=== PATIENT | male | born 1945 | race Caucasian/White ===

== ENCOUNTER 2017-07-22 12:43 | Emergency (ER) | payer MEDICARE, BC ==
[2017-07-22] MEDS ORDERED: FAMOTIDINE INJ/PF 20 MG/2 ML SDV IV ONE (13:07)
[2017-07-22] MEDS ORDERED: METHYLPREDNISOLONE INJ 125 MG/2 ML SDV IV ONE (13:07)
--- NOTE | 2017-07-22 13:08 | ER Document Report ---
HPI - HPI Patient complains to provider of: Insect sting Onset: Just prior to arrival Onset/Duration: Sudden Quality of pain: Burning Pain Level: 5 Context: Patient states he was mowing his yard and a caterpillar fell onto his left cheek and neck area. Patient states that he remove the insect and developed a burning sensation to his left facial area. Patient states that his then wash the area with soap. Patient complains of continued burning sensation and swelling. Patient denies any difficulty breathing, throat swelling, nausea or vomiting. Associated Symptoms: Other - Left side facial pain Exacerbated by: Denies Relieved by: Denies Similar symptoms previously: No Recently seen / treated by doctor: No - ROS ROS below otherwise negative: Yes Systems Reviewed and Negative: Yes All other systems reviewed and negative - CONSTITUTIONAL Constitutional: DENIES: Fever, Chills - NEURO Neurology: DENIES: Headache - CARDIOVASCULAR Cardiovascular: DENIES: Chest pain - RESPIRATORY Respiratory: DENIES: Trouble Breathing, Coughing - GASTROINTESTINAL Gastrointestinal: DENIES: Nausea - MUSCULOSKELETAL Musculoskeletal: REPORTS: Neck Pain - Sided neck - DERM Skin Color: Erythema Skin Problems: None Past Medical History - General Information source: Patient - Social History Smoking Status: Never Smoker Frequency of alcohol use: None Drug Abuse: None Lives with: Spouse/Significant other Family History: Reviewed & Not Pertinent - Past Medical History Cardiac Medical History: Reports: Hx Hypertension - meds x 2 years Denies: Hx Atrial Fibrillation, Hx Congestive Heart Failure, Hx Coronary Artery Disease, Hx Heart Attack, Hx Hypercholesterolemia, Hx Peripheral Vascular Disease, Hx Pulmonary Embolism, Hx Heart Murmur Pulmonary Medical History: Reports: Hx Sleep Apnea - CPAP ordered, ill fitting, does NOT use Denies: Hx Asthma, Hx Bronchitis, Hx COPD, Hx Pneumonia, Hx Respiratory Failure, Hx Tuberculosis Renal/ Medical History: Reports: Hx Benign Prostatic Hyperplasia - Bx 2012 after elevated PSA test, path results negative. Denies: Hx End Stage Renal Disease, Hx Kidney Stones, Hx Peritoneal Dialysis Malignancy Medical History: Denies Hx Lung Cancer GI Medical History: Reports: Hx Gastroesophageal Reflux Disease - prior to Yoni fundoplication 1999, Hx Hiatal Hernia - prior to Yoni fundoplication 1999. Denies: Hx Crohn's Disease, Hx Irritable Bowel, Hx Liver Failure, Hx Ulcer Musculoskeltal Medical History: Reports Hx Arthritis, Denies Hx Fibromyalgia, Denies Hx Muscular Dystrophy Traumatic Medical History: Reports: Hx Fractures - RT arm, as child, closed reduction/casting Past Surgical History: Reports: Hx Herniorrhaphy - RIGHT inguinal with mesh, Hx Orthopedic Surgery. Denies: Hx Appendectomy, Hx Bowel Surgery, Hx Cholecystectomy, Hx Colostomy, Hx Coronary Artery Bypass Graft, Hx Gastric Bypass Surgery, Hx Tonsillectomy - Immunizations Hx Pneumococcal Vaccination: 11/03/11 Vertical Provider Document - CONSTITUTIONAL Agree With Documented VS: Yes Exam Limitations: No Limitations General Appearance: WD/WN, No Apparent Distress - INFECTION CONTROL TRAVEL OUTSIDE OF THE [place] IN LAST 30 DAYS: No - HEENT HEENT: Atraumatic, Normocephalic - NECK Neck: Supple. negative: Lymphadenopathy-Left, Lymphadenopathy-Right - RESPIRATORY Respiratory: Breath Sounds Normal, No Respiratory Distress - CARDIOVASCULAR Cardiovascular: Regular Rate, Regular Rhythm, No Murmur - MUSCULOSKELETAL/EXTREMETIES Musculoskeletal/Extremeties: MAEW - NEURO Level of Consciousness: Awake, Alert, Appropriate Motor/Sensory: No Motor Deficit - DERM Integumentary: Warm, Dry Notes: Erythema to left lateral side of face and neck Course - Re-evaluation Re-evalutation: 07/22/17 15:07 Patient complains of continued stinging sensation to the left side of face. No increased swelling noted, no potential airway compromise. Respirations unlabored. Discharge - Discharge Clinical Impression: Hx of essential hypertension Toxic effect of venom of caterpillars Qualifiers: Encounter type: initial encounter Injury intent: undetermined intent Qualified Code(s): T63.434A - Toxic effect of venom of caterpillars, undetermined, initial encounter Condition: Stable Disposition: HOME, SELF-CARE Instructions: Use of Diphenhydramine, Oral Narcotic Medication ([facility]), Steroid Medication Additional Instructions: Return immediately for any new or worsening symptoms Followup with your primary care provider, call tomorrow to make a followup appointment Prescriptions: Oxycodone HCl/Acetaminophen [Percocet 5-325 mg Tablet] 1 tab PO ASDIR PRN #12 tablet PRN Reason: Prednisone [Deltasone 20 mg Tablet] 2 tab PO DAILY 4 Days tablet Forms: Elevated Blood Pressure Referrals: ADOLFO ROBLERO MD [Primary Care Provider] - Follow up tomorrow
[2017-07-22] MEDS ORDERED: MORPHINE SULFATE 10 MG/ML INJ IV ONE ×2 (13:51→15:05)
--- NOTE | 2017-07-22 14:26 | RADIOLOGY REPORT (SQ) ---
EXAM DESCRIPTION: CHEST XRAY PA ONLY COMPLETED DATE/TIME: 07/22/2017 2:19 pm REASON FOR STUDY: INSECT BITE COMPARISON: 05/28/2013. EXAM PARAMETERS: NUMBER OF VIEWS: One view. TECHNIQUE: Single frontal radiographic view of the chest acquired. RADIATION DOSE: NA LIMITATIONS: None. FINDINGS: LUNGS AND PLEURA: No opacities, masses or pneumothorax. No pleural effusion. MEDIASTINUM AND HILAR STRUCTURES: No masses. Contour normal. HEART AND VASCULAR STRUCTURES: Heart normal in size. Normal vasculature. BONES: No acute findings. HARDWARE: None in the chest. OTHER: No other significant finding. IMPRESSION: NO ACUTE RADIOGRAPHIC FINDING IN THE CHEST. TECHNICAL DOCUMENTATION: JOB ID: [id number]
[2017-07-22 16:00] VITALS: BP 142/92
== END 2017-07-22 15:05 | disposition home or self-care (01) ==
LOC: ER 12:43
DX: T63.431A Toxic effect of venom of caterpillars, accidental (unintentional), initial encounter (principal); Y92.007 Garden or yard of unspecified non-institutional (private) residence as the place of occurrence of the external cause; I10 Essential (primary) hypertension
CPT/HCPCS: 96376; 99282; 96374; 96375; J2930; J2270; S0028

== ENCOUNTER → 2017-11-17 | Outpatient (CLI) | payer MEDICARE, BC ==
--- NOTE | 2017-11-17 12:45 | RADIOLOGY REPORT (SQ) ---
EXAM DESCRIPTION: HIP RIGHT AP/LATERAL COMPLETED DATE/TIME: 11/17/2017 12:28 pm REASON FOR STUDY: PAIN IN RIGHT HIP M25.551 PAIN IN RIGHT HIP M46.1 SACROILIITIS, NOT ELSEWHERE CL ASSIFIED COMPARISON: None. NUMBER OF VIEWS: Two views. TECHNIQUE: AP pelvis and additional frog-leg view of the right hip. LIMITATIONS: None. FINDINGS: MINERALIZATION: Normal. RIGHT HIP: Moderate osteoarthritis in the setting of CAM type morphologic appearance. No fracture or dislocation. No worrisome bone lesions. LEFT HIP: Moderate osteoarthritis in the setting of CAM type morphologic appearance. No fracture or dislocation. No worrisome bone lesions. PUBIS AND ISCHIUM: No fracture. PELVIS: No fracture. SACRUM: See separate report. LOWER LUMBAR SPINE: See separate report. SOFT TISSUES: No findings. OTHER: No other significant finding. IMPRESSION: MODERATE OSTEOARTHRITIS OF THE HIPS WITHOUT ACUTE OSSEOUS ABNORMALITY TECHNICAL DOCUMENTATION: JOB ID: [id number] [employer]- All Rights Reserved
--- NOTE | 2017-11-17 12:46 | RADIOLOGY REPORT (SQ) ---
EXAM DESCRIPTION: SACROILIAC JOINTS COMPLETED DATE/TIME: 11/17/2017 12:28 pm REASON FOR STUDY: SACROILIITIS, NOT ELSEWHERE CLASSIFIED M25.551 PAIN IN RIGHT HIP M46.1 SACROILII TIS, NOT ELSEWHERE CLASSIFIED COMPARISON: None. NUMBER OF VIEWS: Three views. TECHNIQUE: AP and oblique views of the sacroiliac joints. LIMITATIONS: None. FINDINGS: MINERALIZATION: Normal. BONES: No acute fracture or dislocation. No worrisome bone lesions. JOINTS: The sacroiliac joints are patent. No unusual widening, sclerosis, or fusion. SOFT TISSUES: No soft tissue swelling. No radio-opaque foreign body. OTHER: No other significant finding. IMPRESSION: Unremarkable radiographs of the sacroiliac joints. TECHNICAL DOCUMENTATION: JOB ID: [id number]- All Rights Reserved
== END ==
LOC: OD 11:42
PROVIDERS: ATTEND Internal Medicine
DX: M16.0 Bilateral primary osteoarthritis of hip (principal); M25.551 Pain in right hip; M46.1 Sacroiliitis, not elsewhere classified
CPT/HCPCS: 72200

== ENCOUNTER → 2017-11-19 | Outpatient (CLI) | payer MEDICARE, BC ==
--- NOTE | 2017-11-19 14:20 | RADIOLOGY REPORT (SQ) ---
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 Images stored on PACS. LIMITATIONS: None. FINDINGS: ANATOMY: No anomalies. Normal vascular flow voids. Pituitary fossa normal. CSF SPACES: Normal in size and contour. No hemorrhage. CEREBRUM: A few high-signal intensity lesions scattered throughout the white matter on FLAIR imaging with distribution suggesting chronic micro-vascular ischemic change. Sulci and gyri normal in size a nd contour. No evidence of hemorrhage, mass or extraaxial fluid collection. POSTERIOR FOSSA: No signal alteration. No hemorrhage. No edema, masses or mass effect. Internal umang tory canals, cerebello-pontine angles, mastoids normal. DIFFUSION: Negative for acute or sub-acute infarction. ORBITS: No masses. Globes normal. PARANASAL SINUSES: Mild chronic ethmoid and frontal sinus disease. OTHER: No other significant finding. IMPRESSION: MINIMAL MICROVASCULAR ISCHEMIC CHANGE. OTHERWISE NORMAL STUDY. EVIDENCE OF ACUTE STROKE: NO. TECHNICAL DOCUMENTATION: JOB ID: [id number] [employer]- All Rights Reserved
== END ==
LOC: RAD 08:27
PROVIDERS: ATTEND Internal Medicine
DX: R41.1 Anterograde amnesia (principal)
CPT/HCPCS: 70551

== ENCOUNTER → 2017-12-19 | Outpatient (CLI) | payer MEDICARE, BC ==
--- NOTE | 2017-12-20 08:29 | RADIOLOGY REPORT (SQ) ---
EXAM DESCRIPTION: CT ABD/PELVIS WITH IV ORAL COMPLETED DATE/TIME: 12/19/2017 5:49 pm REASON FOR STUDY: LLQ PAIN (R10.32) R10.32 LEFT LOWER QUADRANT PAIN COMPARISON: 05/02/2015. TECHNIQUE: CT scan of the abdomen and pelvis performed using helical scanning technique with dynamic intravenous contrast injection. Oral contrast was given. . Images reviewed with lung, soft tissue, and bone windows. Reconstructed coronal and sagittal MPR images reviewed. Delayed images for evaluat ion of the urinary system also acquired. All images stored on PACS. All CT scanners at this facility use dose modulation, iterative reconstruction, and/or weight based d osing when appropriate to reduce radiation dose to as low as reasonably achievable (ALARA). [facility]: Dose Right [facility]: CareDose [facility]: Dose Right [facility]: Teradose 4D [facility]: Cymbet CONTRAST TYPE AND DOSE: contrast/concentration: Isovue 370.00 mg/ml; Total Contrast Delivered: 100.0 ml; Total Saline Delivered: 40.0 ml RENAL FUNCTION: Creatinine: 0.9 RADIATION DOSE: CT Rad equipment meets quality standard of care and radiation dose reduction techniq ues were employed. CTDIvol: 13.4 - 17.7 mGy. DLP: 1818 mGy-cm.. LIMITATIONS: None. FINDINGS: LOWER CHEST: Dependent atelectasis in lung bases. . LIVER: No abnormality seen. SPLEEN: No abnormality seen. PANCREAS: No abnormality seen. GALLBLADDER: No abnormality seen. ADRENAL GLANDS: No abnormality seen. RIGHT KIDNEY AND URETER: There is a cortical cyst upper pole of right kidney. Small parapelvic cysts of the right kidney. LEFT KIDNEY AND URETER: Cortical cyst upper pole left kidney. Parapelvic cyst left kidney. AORTA AND VESSELS: Atherosclerotic change of the origin of the celiac artery. Patency celiac superio r mesenteric and inferior mesenteric arteries. RETROPERITONEUM: No retroperitoneal adenopathy. BOWEL AND PERITONEAL CAVITY: Since prior study there is been development of mucosal thickening within a short segment of the rectosigmoid colon with adjacent inflammatory change in pericolonic fat ( gabino ge number [id number]/100 sequence 5). Findings are consistent with acute diverticulitis. APPENDIX: Normal. PELVIS: Urinary bladder: No abnormality seen. Prostate and seminal vesicles: Mild prostatomegaly. ABDOMINAL WALL: No masses. No hernias. BONES: There is multilevel lumbar spondylosis and degenerative disc disease. OTHER: Postsurgical changes of abdominal wall hernia repair IMPRESSION: Findings consistent with acute diverticulitis rectosigmoid colon. TECHNICAL DOCUMENTATION: JOB ID: [id number]-69 Quality ID # [id number]: Final reports with documentation of one or more dose reduction techniques (e.g., Au tomated exposure control, adjustment of the mA and/or kV according to patient size, use of iterative reconstruction technique) 2010 [employer]- All Rights Reserved
== END ==
LOC: RAD 14:38
PROVIDERS: ATTEND Internal Medicine
DX: R10.32 Left lower quadrant pain (principal)
CPT/HCPCS: 74177; 82565

== ENCOUNTER → 2018-01-22 | Outpatient (CLI) | payer MEDICARE, BC ==
--- NOTE | 2018-01-22 17:11 | RADIOLOGY REPORT (SQ) ---
EXAM DESCRIPTION: CHEST PA/LATERAL COMPLETED DATE/TIME: 01/22/2018 4:58 pm REASON FOR STUDY: COUGH,SOB COMPARISON: Chest films 05/28/2013, 07/12/2017 EXAM PARAMETERS: NUMBER OF VIEWS: two views TECHNIQUE: Digital Frontal and Lateral radiographic views of the chest acquired. RADIATION DOSE: NA LIMITATIONS: none FINDINGS: LUNGS AND PLEURA: No opacities, masses or pneumothorax. No pleural effusion. MEDIASTINUM AND HILAR STRUCTURES: No masses or contour abnormalities. HEART AND VASCULAR STRUCTURES: Heart normal size. No evidence for failure. BONES: No acute findings. HARDWARE: None in the chest. OTHER: No other significant finding. IMPRESSION: NO SIGNIFICANT RADIOGRAPHIC FINDING IN THE CHEST. TECHNICAL DOCUMENTATION: JOB ID: [id number] [employer]- All Rights Reserved Reading location - IP/workstation name: [email or web address]
== END ==
LOC: OD 16:47
PROVIDERS: ATTEND Physician Assistant Medical
DX: R05 Cough (principal); R06.02 Shortness of breath
CPT/HCPCS: 71046

== ENCOUNTER 2019-05-18 12:01 | Inpatient (IN) | payer MEDICARE, BC ==
[2019-05-18 12:57] LABS: PROTHROMBIN TIME 14.2 SEC (11.4-15.4)
[2019-05-18 13:01] LABS: ABSOLUTE BASOPHILS # (AUTO) 0.1 10^3/uL (0.0-0.2); ABSOLUTE EOSINOPHILS # (AUTO) 0.5 10^3/uL (0.0-0.6); ABSOLUTE LYMPHOCYTES (AUTO) 1.8 10^3/uL (0.5-4.7); ABSOLUTE MONOCYTES (AUTO) 0.5 10^3/uL (0.1-1.4); ABSOLUTE NEUT (AUTO) 4.7 10^3/uL (1.7-8.2); ALANINE AMINOTRANSFERASE 26 U/L (21-72); ALKALINE PHOSPHATASE 95 U/L (38-126); ANION GAP 9 (5-19); ASPARTATE AMINO TRANSFERASE 24 U/L (17-59); BASOPHILS % (AUTO) 0.7 % (0-2); BILIRUBIN,DIRECT 0.3 mg/dL (0.0-0.4); BILIRUBIN,TOTAL 0.7 mg/dL (0.2-1.3); BLOOD UREA NITROGEN 13 mg/dL (7-20); CALCIUM 9.2 mg/dL (8.4-10.2); CARBON DIOXIDE 24 mmol/L (22-30); CHLORIDE 108 mmol/L (98-107); EOSINOPHILS % (AUTO) 7.2 % (0-6); GLUCOSE 85 mg/dL (75-110); HEMATOCRIT 39.8 % (37.9-51.0); LYMPHOCYTES % (AUTO) 23.9 % (13-45); MEAN CORPUSCULAR HEMOGLOBIN 28.7 pg (27.0-33.4); MEAN CORPUSCULAR HGB CONC 32.8 g/dL (32.0-36.0); MEAN CORPUSCULAR VOLUME 88 fl (80-97); MONOCYTES % (AUTO) 6.1 % (3-13); PLATELET COUNT 184 10^3/uL (150-450); RED BLOOD COUNT 4.55 10^6/uL (4.35-5.55); RED CELL DISTRIBUTION WIDTH 13.7 % (11.5-14.0); SEGMENTED NEUTROPHILS % (AUTO) 62.1 % (42-78); SODIUM 140.9 mmol/L (137-145); TOTAL CELLS COUNTED % (AUTO) 100 %; WHITE BLOOD COUNT 7.5 10^3/uL (4.0-10.5)
--- NOTE | 2019-05-18 13:19 | ER Document Report ---
ED Respiratory Problem - General Chief Complaint: Shortness Of Breath Stated Complaint: SHORTNESS OF BREATH Time Seen by Provider: 05/18/19 13:09 Primary Care Provider: ADOLFO ROBLERO MD [Primary Care Provider] - Follow up as needed Notes: Patient is a 73-year-old male who is having some shortness of breath inte rmittently over the past few weeks. He underwent a right total hip replacement in [place] on April 27. Ever since then, he says he has had intermittent shortness of breath. He had a routine six-month checkup with his primary care physician today and mention to him that he was having these episodes of shortness of breath and patient was sent for an outpatient CTA. That imaging study showed multiple areas of pulmonary emboli bilaterally. There is also some evidence of right heart strain and elevated right-sided pressure. TRAVEL OUTSIDE OF THE [place] IN LAST 30 DAYS: No - Related Data Allergies/Adverse Reactions: adhesive tape [Adhesive Tape] Allergy (Intermediate, Verified 05/18/19 12:16) Hives latex [Latex] Allergy (Intermediate, Verified 05/18/19 12:16) Hives Past Medical History - Social History Smoking Status: Former Smoker Frequency of alcohol use: None Drug Abuse: None Family History: Reviewed & Not Pertinent Patient has suicidal ideation: No Patient has homicidal ideation: No - Past Medical History Cardiac Medical History: Reports: Hx Hypertension - meds x 2 years Pulmonary Medical History: Reports: Hx Sleep Apnea - CPAP ordered, ill fitting, does NOT use Renal/ Medical History: Reports: Hx Benign Prostatic Hyperplasia - Bx 2011 after elevated PSA test, path results negative Malignancy Medical History: Denies Hx Lung Cancer GI Medical History: Reports: Hx Gastroesophageal Reflux Disease - prior to Yoni fundoplication 1999, Hx Hiatal Hernia - prior to Yoni fundoplication 1999 Musculoskeletal Medical History: Reports Hx Arthritis, Denies Hx Fibromyalgia, Denies Hx Muscular Dystrophy Traumatic Medical History: Reports: Hx Fractures - RT arm, as child, closed reduction/casting Past Surgical History: Reports: Hx Abdominal Surgery, Hx Herniorrhaphy - RIGHT inguinal with mesh, Hx Orthopedic Surgery, Hx Tonsillectomy. Denies: Hx Appendectomy, Hx Bowel Surgery, Hx Cholecystectomy, Hx Colostomy, Hx Coronary Artery Bypass Graft, Hx Gastric Bypass Surgery - Immunizations Hx Pneumococcal Vaccination: 01/01/12 Review of Systems - Review of Systems Notes: REVIEW OF SYSTEMS: CONSTITUTIONAL : Denies fever. EENT: Denies eye, ear, nose or mouth or throat pain or other symptoms. CARDIOVASCULAR: Denies chest pain. RESPIRATORY: See HPI. GASTROINTESTINAL: Denies abdominal pain or nausea, vomiting, or diarrhea. GENITOURINARY: Denies difficulty or painful urinating, urinary frequency, blood in urine. MUSCULOSKELETAL: Denies back or neck pain. Denies joint pain or swelling. Denies any pain in either leg. SKIN: Denies rash or skin lesions. Surgical incision has healed completely. NEUROLOGICAL: Denies LOC or altered mental status. Denies headache. Denies sensory loss or motor deficits. ALL OTHER SYSTEMS REVIEWED AND NEGATIVE. Physical Exam - Vital signs Vitals: Temp Pulse Resp BP Pulse Ox 98.4 F 68 16 147/81 H 99 05/18/19 12:05 05/18/19 12:05 05/18/19 12:05/18/19 12:05/18/19 12:05 Interpretation: Normal. No: Hypoxic Notes: PHYSICAL EXAMINATION: GENERAL: Well-appearing, in no acute distress. Vital signs are all normal. O2 sat on room air is 100%. HEAD: Atraumatic, normocephalic. EYES: Pupils equal round and reactive to light, extraocular movements intact. ENT: oropharynx clear without exudates. Moist mucous membranes. NECK: Normal range of motion, supple. LUNGS: Breath sounds clear and equal bilaterally. HEART: Regular rate and rhythm without murmurs. ABDOMEN: Soft, nontender. No guarding or rebound. No masses. BACK: No tenderness throughout entire back. EXTREMITIES: Normal range of motion without pain. Tender where the surgical incision is located in the right hip region. NEUROLOGICAL: Normal speech, normal gait. Normal sensory, motor, and reflex exams. Awake, alert, and oriented x3. Cranial nerves normal. PSYCH: Normal mood, normal affect. SKIN: Warm, dry, no rashes. Course - Re-evaluation Re-evalutation: 05/18/19 13:19 Contacted patient's primary care physician, Dr. Pierre, who will admit him for anticoagulation. - Vital Signs Vital signs: Temp Pulse Resp BP Pulse Ox 98.4 F 68 16 147/81 H 99 05/18/19 12:05 05/18/19 12:05/18/19 12:05 05/18/19 12:05 05/18/19 12:05 - Laboratory Result Diagrams: 05/18/19 12:00 05/18/19 12:00 Laboratory results interpreted by me: 05/18/19 05/18/19 12:00 12:00 Hgb 13.0 L Eosinophils % 7.2 H Chloride 108 H - Diagnostic Test Radiology reviewed: Image reviewed, Reports reviewed - CT scan shows multiple pulmonary emboli throughout both lungs. There is some evidence of right heart strain, as well. Discharge - Discharge Clinical Impression: Multiple pulmonary emboli Condition: Stable Disposition: ADMITTED INPATIENT Admitting Provider: [facility] Unit Admitted: IMCU Referrals: ADOLFO ROBLERO MD [Primary Care Provider] - Follow up as needed
[2019-05-18] MEDS ORDERED: HEPARIN SOD (PORCINE) 5,000 UNIT/ML 1 ML SYRINGE ONE (13:49)
[2019-05-18] MEDS ORDERED: HEPARIN SOD (PORCINE) 1,000 UNIT/ML 10 ML VIAL ONE (13:50)
[2019-05-18] MEDS: HEPARIN SODIUM,PORCINE/D5W 25,000 UNIT/250 ML RTUINJ IV PRN (14:10)
[2019-05-18] MEDS ORDERED: HEPARIN SOD (PORCINE) 1,000 UNIT/ML 10 ML VIAL IV PRN (16:40)
[2019-05-18] MEDS ORDERED: IPRATROPIUM/ALBUTEROL 0.5-2.5 MG/3 ML AMPUL NEB PRN (19:46)
[2019-05-18 20:34] LABS: ABSOLUTE BASOPHILS # (AUTO) 0.1 10^3/uL (0.0-0.2); ABSOLUTE EOSINOPHILS # (AUTO) 0.7 10^3/uL (0.0-0.6); ABSOLUTE LYMPHOCYTES (AUTO) 2.1 10^3/uL (0.5-4.7); ABSOLUTE MONOCYTES (AUTO) 0.5 10^3/uL (0.1-1.4); ABSOLUTE NEUT (AUTO) 2.7 10^3/uL (1.7-8.2); BASOPHILS % (AUTO) 1.2 % (0-2); EOSINOPHILS % (AUTO) 11.1 % (0-6); HEMATOCRIT 37.6 % (37.9-51.0); HEMOGLOBIN 12.5 g/dL (13.5-17.0); MEAN CORPUSCULAR HEMOGLOBIN 28.7 pg (27.0-33.4); MEAN CORPUSCULAR HGB CONC 33.2 g/dL (32.0-36.0); MEAN CORPUSCULAR VOLUME 87 fl (80-97); MONOCYTES % (AUTO) 7.7 % (3-13); PLATELET COUNT 183 10^3/uL (150-450); RED BLOOD COUNT 4.35 10^6/uL (4.35-5.55); RED CELL DISTRIBUTION WIDTH 13.8 % (11.5-14.0); TOTAL CELLS COUNTED % (AUTO) 100 %
[2019-05-18 20:41] LABS: INTERNATIONAL RATION (INR) 1.06; PROTHROMBIN TIME 13.8 SEC (11.4-15.4)
[2019-05-18 20:43] LABS: PARTIAL THROMBOPLASTIN TIME 112.5 SEC (23.5-35.8)
[2019-05-18] MEDS: AMLODIPINE BESYLATE 2.5 MG TABLET PO SCH (20:58)
[2019-05-18] MEDS: PANTOPRAZOLE SODIUM 40 MG TABLET.DR PO SCH (20:59)
[2019-05-18 21:06] LABS: PHOSPHORUS 4.4 mg/dL (2.5-4.5)
[2019-05-18 21:10] LABS: CREATINE KINASE MB 0.35 ng/mL (<4.55)
[2019-05-18 21:12] LABS: TROPONIN I < 0.012 ng/mL
[2019-05-18 21:23] LABS: FREE T4 (FREE THYROXINE) 1.26 ng/dL (0.78-2.19)
[2019-05-18 21:37] LABS: THYROID STIMULATING HORMONE 2.91 uIU/mL (0.47-4.68)
--- NOTE | 2019-05-18 22:09 | PDOC H&P ---
History of Present Illness Admission Date/PCP: 05/18/19 13:57 ADOLFO ROBLERO MD History of Present Illness: HIRA WELLS is a 73 year old male,He came to the office today for regular follow-up evaluation, he recently underwent a right total hip joint replacement uremic seen on April 27, 2019. He complained of episodes of shortness of breath, I was somewhat concerned especially because he just recently underwent right hip replacement and he was not on any anticoagulant. I suspected pulmonary embolism, I requested for a stat CT angiogram of the chest. It demonstrated central, lobar, segmental/subsegmental pulmonary emboli bilaterally with evidence of breath and strain and elevated right-sided pressures I was called by the radiologist about the results of the CT angiogram, he was then referred to the ER to initiate management. Past Medical History Cardiac Medical History: Reports: Hypertension - meds x 2 years Pulmonary Medical History: Reports: Sleep Apnea - CPAP ordered, ill fitting, does NOT use GI Medical History: Reports: Gastroesophageal Reflux Disease - prior to Yoni fundoplication 1999, Hiatal Hernia - prior to Yoni fundoplication 1999 Musculoskeltal Medical History: Reports: Arthritis Past Surgical History Past Surgical History: Reports: Herniorrhaphy - RIGHT inguinal with mesh, Orthopedic Surgery, Tonsillectomy Social History Smoking Status: Former Smoker Hx Recreational Drug Use: No Hx Prescription Drug Abuse: No Family History Family History: Reviewed & Not Pertinent Parental Family History Reviewed: Yes Children Family History Reviewed: Yes Sibling(s) Family History Reviewed.: Yes Medication/Allergy Home Medications: Amlodipine Besylate [Norvasc 2.5 mg Tablet] 2.5 mg PO DAILY 05/18/19 Celecoxib [Celebrex 200 mg Capsule] 200 mg PO Q12HP PRN 05/18/19 Meloxicam [Mobic 7.5 mg Tablet] 7.5 mg PO Q12HP PRN 05/18/19 Montelukast Sodium [Singulair 10 mg Tablet] 10 mg PO QHS 05/18/19 Pantoprazole Sodium [Protonix [address] Tablet] 40 mg PO QAM 05/18/19 Pravastatin Sodium 40 mg PO DAILY 05/18/19 Allergies/Adverse Reactions: adhesive tape [Adhesive Tape] Allergy (Intermediate, Verified 05/18/19 12:16) Hives latex [Latex] Allergy (Intermediate, Verified 05/18/19 12:16) Hives Review of Systems Constitutional: ABSENT: chills, fever(s), headache(s), weight gain, weight loss Eyes: ABSENT: visual disturbances Ears: ABSENT: hearing changes Cardiovascular: PRESENT: dyspnea on exertion. ABSENT: chest pain, edema, orthropnea, palpitations Respiratory: PRESENT: dyspnea. ABSENT: cough, hemoptysis Gastrointestinal: ABSENT: abdominal pain, constipation, diarrhea, hematemesis, hematochezia, nausea, vomiting Genitourinary: ABSENT: dysuria, hematuria Musculoskeletal: ABSENT: joint swelling Integumentary: ABSENT: rash, wounds Neurological: ABSENT: abnormal gait, abnormal speech, confusion, dizziness, focal weakness, syncope Psychiatric: ABSENT: anxiety, depression, homidical ideation, suicidal ideation Endocrine: ABSENT: cold intolerance, heat intolerance, menstrual abnormalities, polydipsia, polyuria Hematologic/Lymphatic: ABSENT: easy bleeding, easy bruising, lymphadenopathy Physical Exam Vital Signs: Temp Pulse Resp BP Pulse Ox 98.4 F 68 23 H 156/120 H 97 05/18/19 12:05 05/18/19 12:05 05/18/19 20:01 05/18/19 20:01 05/18/19 20:01 Intake & Output 05/17/19 05/18/19 05/19/19 06:59 06:59 06:59 Intake Total 116 Balance 116 Weight 90.718 kg General appearance: PRESENT: mild distress Head exam: PRESENT: atraumatic, normocephalic Eye exam: PRESENT: conjunctiva pink, EOMI, PERRLA Ear exam: PRESENT: normal external ear exam Mouth exam: PRESENT: moist, tongue midline Neck exam: PRESENT: full ROM Respiratory exam: PRESENT: rhonchi Cardiovascular exam: PRESENT: RRR, +S1, +S2 Vascular exam: PRESENT: normal capillary refill GI/Abdominal exam: PRESENT: normal bowel sounds, soft Rectal exam: PRESENT: deferred Neurological exam: PRESENT: alert, awake, oriented to person, oriented to place, oriented to time, oriented to situation, CN II-XII grossly intact Psychiatric exam: PRESENT: appropriate affect, normal mood Skin exam: PRESENT: dry, intact, warm Results Laboratory Results: 05/18/19 20:15 05/18/19 12:00 05/18/19 05/18/19 05/18/19 12:00 12:00 20:15 WBC 7.5 RBC 4.55 Hgb 13.0 L Hct 39.8 MCV 88 MCH 28.7 MCHC 32.8 RDW 13.7 Plt Count 184 Seg Neutrophils % 62.1 Lymphocytes % 23.9 Monocytes % 6.1 Eosinophils % 7.2 H Basophils % 0.7 Absolute Neutrophils 4.7 Absolute Lymphocytes 1.8 Absolute Monocytes 0.5 Absolute Eosinophils 0.5 Absolute Basophils 0.1 Sodium 140.9 Potassium 4.0 Chloride 108 H Carbon Dioxide 24 Anion Gap 9 BUN 13 Creatinine 0.86 Est GFR ( Amer) > 60 Est GFR (Non-Af Amer) > 60 Glucose 85 Calcium 9.2 Phosphorus 4.4 Magnesium 2.0 Total Bilirubin 0.7 AST 24 ALT 26 Alkaline Phosphatase 95 Total Protein 7.0 Albumin 4.0 TSH Free T4 05/18/19 05/18/19 20:15 20:15 WBC 6.0 RBC 4.35 Hgb 12.5 L Hct 37.6 L MCV 87 MCH 28.7 MCHC 33.2 RDW 13.8 Plt Count 183 Seg Neutrophils % 45.0 Lymphocytes % 35.0 Monocytes % 7.7 Eosinophils % 11.1 H Basophils % 1.2 Absolute Neutrophils 2.7 Absolute Lymphocytes 2.1 Absolute Monocytes 0.5 Absolute Eosinophils 0.7 H Absolute Basophils 0.1 Sodium Potassium Chloride Carbon Dioxide Anion Gap BUN Creatinine Est GFR ( Amer) Est GFR (Non-Af Amer) Glucose Calcium Phosphorus Magnesium Total Bilirubin AST ALT Alkaline Phosphatase Total Protein Albumin TSH 2.91 Free T4 1.26 05/18/19 05/18/19 20:15 20:15 Creatine Kinase 33 L CK-MB (CK-2) 0.35 Troponin I < 0.012 Assessment & Plan - Diagnosis (1) Bilateral pulmonary embolism Is this a current diagnosis for this admission?: Yes Plan: Patient to be treated with high-dose intravenous heparin, he has large clot burden.The risk factor for the PE is the recent replacement of the right hip joint
[2019-05-19 01:01] LABS: APPEARANCE,URINE CLEAR; BILIRUBIN,URINE NEGATIVE (NEGATIVE); COLOR,URINE YELLOW; GLUCOSE, URINE NEGATIVE (NEGATIVE); KETONES,URINE NEGATIVE (NEGATIVE); LEUKOCYTE ESTERASE,URINE NEGATIVE (NEGATIVE); NITRITE,URINE NEGATIVE (NEGATIVE); PROTEIN,URINE NEGATIVE (NEGATIVE); URINE SPECIFIC GRAVITY 1.015; UROBILINOGEN,URINE NEGATIVE mg/dL (<2.0)
[2019-05-19 01:03] LABS: ARTERIAL BLOOD BASE EXCESS -0.7 mmol/L; ARTERIAL BLOOD H2CO3 0.98 mmol/L (1.05-1.35); ARTERIAL BLOOD HCO3 22.4 mmol/L (20-24); ARTERIAL BLOOD O2 SATURATION 98.4 % (94-98); ARTERIAL BLOOD PCO2 32.5 mmHg (35-45); ARTERIAL BLOOD PH 7.46 (7.35-7.45); ARTERIAL BLOOD PO2 113.4 mmHg (80-100); ARTERIAL BLOOD TOTAL CO2 23.4 mmol/L (23-27)
[2019-05-19 01:04] LABS: ARTERIAL BLOOD FIO2 3L
[2019-05-19 01:05] LABS: ADD MANUAL MICROSCOPIC YES
[2019-05-19 01:06] LABS: RBC,URINE RARE /HPF; WBC,URINE RARE /HPF
[2019-05-19 01:17] LABS: URINE AMPHETAMINES SCREEN NEGATIVE; URINE BARBITURATES SCREEN NEGATIVE; URINE BENZODIAZEPINES SCREEN NEGATIVE; URINE COCAINE SCREEN NEGATIVE; URINE MARIJUANA (THC) SCREEN NEGATIVE; URINE METHADONE SCREEN NEGATIVE; URINE PHENCYCLIDINE SCREEN NEGATIVE
[2019-05-19 02:53] LABS: CREATINE KINASE MB 0.33 ng/mL (<4.55)
[2019-05-19 03:42] LABS: TROPONIN I < 0.012 ng/mL
[2019-05-19] MEDS: HEPARIN SODIUM,PORCINE/D5W 25,000 UNIT/250 ML RTUINJ IV PRN (06:16)
[2019-05-19] MEDS: PANTOPRAZOLE SODIUM 40 MG TABLET.DR PO SCH (08:23)
[2019-05-19] MEDS ORDERED: NITROGLYCERIN 0.4 MG/TAB 25 TAB/BOTTLE ONE (09:17)
[2019-05-19] MEDS ORDERED: ASPIRIN 325 MG TABLET, ENT COATED PO ONE (09:21)
[2019-05-19 09:23] LABS: ABSOLUTE BASOPHILS # (AUTO) 0.1 10^3/uL (0.0-0.2); ABSOLUTE EOSINOPHILS # (AUTO) 0.6 10^3/uL (0.0-0.6); ABSOLUTE LYMPHOCYTES (AUTO) 1.6 10^3/uL (0.5-4.7); ABSOLUTE MONOCYTES (AUTO) 0.3 10^3/uL (0.1-1.4); ABSOLUTE NEUT (AUTO) 2.9 10^3/uL (1.7-8.2); BASOPHILS % (AUTO) 1.1 % (0-2); EOSINOPHILS % (AUTO) 10.7 % (0-6); HEMATOCRIT 37.7 % (37.9-51.0); HEMOGLOBIN 12.6 g/dL (13.5-17.0); LYMPHOCYTES % (AUTO) 30.2 % (13-45); MEAN CORPUSCULAR HEMOGLOBIN 28.7 pg (27.0-33.4); MEAN CORPUSCULAR HGB CONC 33.4 g/dL (32.0-36.0); MEAN CORPUSCULAR VOLUME 86 fl (80-97); MONOCYTES % (AUTO) 5.1 % (3-13); PLATELET COUNT 180 10^3/uL (150-450); RED BLOOD COUNT 4.39 10^6/uL (4.35-5.55); SEGMENTED NEUTROPHILS % (AUTO) 52.9 % (42-78); TOTAL CELLS COUNTED % (AUTO) 100 %; WHITE BLOOD COUNT 5.4 10^3/uL (4.0-10.5)
[2019-05-19] MEDS ORDERED: NITROGLYCERIN 2% OINTMENT 1 GM PACKET ONE (09:26)
[2019-05-19 09:30] LABS: INTERNATIONAL RATION (INR) 1.06; PROTHROMBIN TIME 13.8 SEC (11.4-15.4)
[2019-05-19 09:32] LABS: PARTIAL THROMBOPLASTIN TIME 67.4 SEC (23.5-35.8)
[2019-05-19] MEDS ORDERED: MORPHINE SULFATE 10 MG/ML INJ ONE (09:32)
[2019-05-19 09:41] LABS: ALANINE AMINOTRANSFERASE 27 U/L (21-72); ALBUMIN 3.7 g/dL (3.5-5.0); ALKALINE PHOSPHATASE 95 U/L (38-126); ANION GAP 7 (5-19); ASPARTATE AMINO TRANSFERASE 16 U/L (17-59); BILIRUBIN,DIRECT 0.1 mg/dL (0.0-0.4); BILIRUBIN,TOTAL 0.6 mg/dL (0.2-1.3); BLOOD UREA NITROGEN 13 mg/dL (7-20); CALCIUM 9.1 mg/dL (8.4-10.2); CARBON DIOXIDE 25 mmol/L (22-30); CHLORIDE 109 mmol/L (98-107); CHOLESTEROL 122.16 mg/dL (0-200); GLUCOSE 92 mg/dL (75-110); SODIUM 141.3 mmol/L (137-145); TOTAL PROTEIN 6.4 g/dL (6.3-8.2); TRIGLYCERIDES 156 mg/dL (<150)
--- NOTE | 2019-05-19 09:48 | RADIOLOGY REPORT (SQ) ---
EXAM DESCRIPTION: CHEST SINGLE VIEW COMPLETED DATE/TIME: 05/19/2019 9:39 am REASON FOR STUDY: chest pain COMPARISON: None. EXAM PARAMETERS: NUMBER OF VIEWS: One view. TECHNIQUE: Single frontal radiographic view of the chest acquired. RADIATION DOSE: NA LIMITATIONS: None. FINDINGS: LUNGS AND PLEURA: No opacities, masses or pneumothorax. No pleural effusion. MEDIASTINUM AND HILAR STRUCTURES: No masses. Contour normal. HEART AND VASCULAR STRUCTURES: Heart normal in size. Normal vasculature. BONES: No acute findings. HARDWARE: None in the chest. OTHER: No other significant finding. IMPRESSION: NO ACUTE RADIOGRAPHIC FINDING IN THE CHEST. TECHNICAL DOCUMENTATION: JOB ID: [id number] [employer]- All Rights Reserved Reading location - IP/workstation name: [email or web address]
[2019-05-19 09:52] LABS: DIRECT LDL 51 mg/dL (<100)
[2019-05-19 09:53] LABS: CREATINE KINASE MB 0.29 ng/mL (<4.55); TROPONIN I < 0.012 ng/mL; VLDL CHOLESTEROL 31.2 mg/dL (10-31)
[2019-05-19] MEDS ORDERED: NITROGLYCERIN 0.4 MG/TAB 25 TAB/BOTTLE SL PRN (10:32)
[2019-05-19] MEDS: AMLODIPINE BESYLATE 2.5 MG TABLET PO SCH (11:33)
--- NOTE | 2019-05-19 13:30 | EKG REPORT ---
SEVERITY:- ABNORMAL ECG - SINUS RHYTHM FIRST DEGREE AV BLOCK : Confirmed by: Jeromy Jackson MD 19-May-2019 13:30:02
--- NOTE | 2019-05-19 13:32 | EKG REPORT ---
SEVERITY:- ABNORMAL ECG - SINUS RHYTHM FIRST DEGREE AV BLOCK RIGHT VENTRICULAR HYPERTROPHY (NO, THIS IS A "RIGHT SIDED EKG", UNCERTAIN INDICATION FOR THIS) NONSPECIFIC T ABNORMALITIES, LATERAL LEADS (NO, THIS IS A RIGHT SIDED EKG) : Confirmed by: Jeromy Jackson MD 19-May-2019 13:31:58
[2019-05-19] MEDS ORDERED: OXYCODONE-ACETAMINOPHEN 5-325 MG TABLET PO PRN (14:28)
--- NOTE | 2019-05-19 15:19 | XCELERA REPORT ---
[address] [address] Transthoracic Echocardiogram Report Name: HIRA WELLS Age: 73 yrs Gender: Male : 1945 Patient Status: Inpatient Patient Location: [address] [place] [address] Study Date: 05/19/2019 10:20 AM Height: 68 in Weight: 197 lb BSA: 2.0 m2 Procedure: A two-dimensional transthoracic echocardiogram with color flow and Doppler was performed. The study was technically difficult with many images being suboptimal in quality. Reason For Study: chest pain History: Chest pain. Ordering Physician: ROZ LAMA Performed By: Mello Mora Interpretation Summary The left ventricle is normal in size. There is normal left ventricular wall thickness. LV EF is 65% Left ventricular systolic function is normal. Doppler measurements suggest impaired left ventricular relaxation, which is associated with grade I/IV or mild diastolic dysfunction The left ventricular wall motion is normal. Paradoxical septal motion is consistent with right ventricular volume overload The right ventricle is moderate to severely dilated. The right ventricular systolic function is mild to moderately reduced. There is borderline right ventricular hypertrophy. There is no evidence of mitral valve prolapse. There is no mitral valve stenosis. There is a trace amount of mitral regurgitation There is no aortic valve stenosis No aortic regurgitation is present. There is no tricuspid stenosis. There is a trace to mild amount of tricuspid regurgitation Kild hypertension.RVSP is 35 mm of Hg wirh RA mean of 10.Suspect ubder sampling of TR jjet , and hence underestimation of RVSP. There is no pulmonic valvular stenosis. There is no pericardial effusion. MMode/2D Measurements & Calculations RVDd: 4.2 cm LVIDd: 4.5 cm FS: 39.6 % Ao root diam: 3.0 cm IVSd: 0.84 cm LVIDs: 2.7 cm EDV(Teich): Ao root area: LVPWd: 0.89 cm 93.4 ml 7.1 cm2 ESV(Teich): LA dimension: 3.8 cm 27.7 ml EF(Teich): 70.3 % LVLd ap4: 8.7 cm SV(MOD-sp4): EDV(MOD-sp4): 54.0 ml 84.0 ml LVLs ap4: 7.2 cm ESV(MOD-sp4): 30.0 ml EF(MOD-sp4): 64.3 % Doppler Measurements & Calculations MV E max serg: MV P1/2t max serg: Ao V2 max: LV V1 max P.0 cm/sec 73.9 cm/sec 136.8 cm/sec 7.4 mmHg MV A max serg: MV P1/2t: 73.3 msec Ao max P.5 mmHg LV V1 max: 76.7 cm/sec MVA(P1/2t): 3.0 cm2 135.7 cm/sec MV E/A: 0.92 MV dec slope: 295.3 cm/sec2 MV dec time: 0.27 sec PA V2 max: TR max serg: MV P1/2t-pr_phl: 65.6 cm/sec 248.7 cm/sec 73.3 msec PA max PG: TR max P.7 mmHg 1.7 mmHg Left Ventricle The left ventricle is normal in size. There is normal left ventricular wall thickness. LV EF is 65%. Left ventricular systolic function is normal. Doppler measurements suggest impaired left ventricular relaxation, which is associated with grade I/IV or mild diastolic dysfunction. The left ventricular wall motion is normal. Paradoxical septal motion is consistent with right ventricular volume overload. Right Ventricle The right ventricle is moderate to severely dilated. There is borderline right ventricular hypertrophy. The right ventricular systolic function is mild to moderately reduced. Atria The right atrium is moderately dilated. The left atrial size is normal. Mitral Valve There is no evidence of mitral valve prolapse. There is no vegetation seen on the mitral valve. There is no mitral valve stenosis. There is a trace amount of mitral regurgitation. Aortic Valve There is no aortic valvular vegetation. There is no aortic valve stenosis. No aortic regurgitation is present. Tricuspid Valve There is no tricuspid stenosis. There is a trace to mild amount of tricuspid regurgitation. Kild hypertension.RVSP is 35 mm of Hg wirh RA mean of 10.Suspect ubder sampling of TR jjet , and hence underestimation of RVSP. Pulmonic Valve The pulmonic valve is not well visualized. There is no pulmonic valvular stenosis. There is no pulmonic valvular regurgitation. Great Vessels The aortic root is normal size. The inferior vena cava was not visualized. Effusions There is no pericardial effusion. : ROZ LAMA > Rosemarie Mcdowell
[2019-05-19 16:27] LABS: CREATINE KINASE MB 0.23 ng/mL (<4.55)
[2019-05-19 16:31] LABS: TROPONIN I < 0.012 ng/mL
--- NOTE | 2019-05-19 18:46 | Progress Note ---
Provider Note Provider Note: HIRA WELLS is a 73 year old male admitted for multiple PE by Dr. Cherry his PCP. At around 9:14 AM patient was complaining of chest pain radiating to the left shoulder, accompanied with diaphoresis, low BP and labored breathing W[employer] TURBINE TECHNICIAN was called which I responded to patient received 1 L of IV bolus sublingual and topical nitro aspirin and morphine. Patient's pain resolved and vitals remained stable. Stat troponin, chest x-ray WNL. Stat echo showed right heart strain. After [employer] TURB[employer] TECHNICIAN patient was upset about his care and I was contacted as per patient's request for second opinion. Bilateral pulmonary embolism: History of recent hip replacement, not anticoagulated which may have contributed to recent PE development. Patient admitted by PCP Dr. Cherry and appropriately being admitted in IMCU/Tele and placed on heparin drip. I believe based on CTA/echo findings of right heart strain and patient and the fact that patient already had chest pain and hypotension and an [employer]INE TECHNICIAN was called, he could benefit from being transferred to tertiary center where more resources readily available in case patient decompensates. Will defer final decision to PCP.
--- NOTE | 2019-05-19 19:48 | PDOC PROGRESS REPORT ---
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 Patient presently on IV heparin hemodynamically stable there is no indication at this time for systemic thrombolysis, patient will continue IV heparin for 4 to 5 days and then transition to p.o. Eliquis. Patient's family was requesting for transfer, I call [facility], patient was accepted in transfer but there is no bed available. Patient is on appropriate therapy, chest pain ,shortness of breath is part of the symptomatology of PE, I do not understand why chest pain from PE should be a reason for transfer to another hospital. Reason For Visit: SEVERE BILATERAL PULMONARY EMBOLISM Physical Exam Vital Signs: Temp Pulse Resp BP Pulse Ox 98.4 F 74 20 93/67 L 98 05/19/19 11:07 05/19/19 14:00 05/19/19 11:07 05/19/19 11:07 05/19/19 11:07 Intake & Output 05/18/19 05/19/19 05/20/19 06:59 06:59 06:59 Intake Total 243 1080 Output Total 550 1200 Balance -307 -120 Weight 89.4 kg General appearance: PRESENT: no acute distress Head exam: PRESENT: atraumatic, normocephalic Eye exam: PRESENT: PERRLA Ear exam: PRESENT: normal external ear exam Neck exam: PRESENT: full ROM Respiratory exam: PRESENT: clear to auscultation ashlee Cardiovascular exam: PRESENT: RRR, +S1, +S2 Pulses: PRESENT: normal dorsalis pedis pul, +2 pedal pulses bilateral Vascular exam: PRESENT: normal capillary refill GI/Abdominal exam: PRESENT: normal bowel sounds, soft Rectal exam: PRESENT: deferred Neurological exam: PRESENT: alert, CN II-XII grossly intact Psychiatric exam: PRESENT: appropriate affect, normal mood Skin exam: PRESENT: dry, intact, warm. ABSENT: cyanosis, rash Results Laboratory Results: 05/19/19 09:05 05/19/19 09:05 05/18/19 05/18/19 05/18/19 20:15 20:15 20:15 WBC 6.0 RBC 4.35 Hgb 12.5 L Hct 37.6 L MCV 87 MCH 28.7 MCHC 33.2 RDW 13.8 Plt Count 183 Seg Neutrophils % 45.0 Lymphocytes % 35.0 Monocytes % 7.7 Eosinophils % 11.1 H Basophils % 1.2 Absolute Neutrophils 2.7 Absolute Lymphocytes 2.1 Absolute Monocytes 0.5 Absolute Eosinophils 0.7 H Absolute Basophils 0.1 Carbonic Acid HCO3/H2CO3 Ratio ABG pH ABG pCO2 ABG pO2 ABG HCO3 ABG O2 Saturation ABG Base Excess FiO2 Sodium Potassium Chloride Carbon Dioxide Anion Gap BUN Creatinine Est GFR ( Amer) Est GFR (Non-Af Amer) Glucose Calcium Phosphorus 4.4 Magnesium 2.0 Total Bilirubin AST ALT Alkaline Phosphatase Ammonia Total Protein Albumin Triglycerides Cholesterol LDL Cholesterol Direct VLDL Cholesterol HDL Cholesterol TSH 2.91 Free T4 1.26 Urine Color Urine Appearance Urine pH Ur Specific [place] Urine Protein Urine Glucose (UA) Urine Ketones Urine Blood Urine Nitrite Ur Leukocyte Esterase 05/19/19 05/19/19 05/19/19 00:35 00:35 09:05 WBC 5.4 RBC 4.39 Hgb 12.6 L Hct 37.7 L MCV 86 MCH 28.7 MCHC 33.4 RDW 14.0 Plt Count 180 Seg Neutrophils % 52.9 Lymphocytes % 30.2 Monocytes % 5.1 Eosinophils % 10.7 H Basophils % 1.1 Absolute Neutrophils 2.9 Absolute Lymphocytes 1.6 Absolute Monocytes 0.3 Absolute Eosinophils 0.6 Absolute Basophils 0.1 Carbonic Acid 0.98 L HCO3/H2CO3 Ratio 22:1 ABG pH 7.46 H ABG pCO2 32.5 L ABG pO2 113.4 H ABG HCO3 22.4 ABG O2 Saturation 98.4 H ABG Base Excess -0.7 FiO2 3L Sodium Potassium Chloride Carbon Dioxide Anion Gap BUN Creatinine Est GFR ( Amer) Est GFR (Non-Af Amer) Glucose Calcium Phosphorus Magnesium Total Bilirubin AST ALT Alkaline Phosphatase Ammonia Total Protein Albumin Triglycerides Cholesterol LDL Cholesterol Direct VLDL Cholesterol HDL Cholesterol TSH Free T4 Urine Color YELLOW Urine Appearance CLEAR Urine pH 6.0 Ur Specific [place] 1.015 Urine Protein NEGATIVE Urine Glucose (UA) NEGATIVE Urine Ketones NEGATIVE Urine Blood NEGATIVE Urine Nitrite NEGATIVE Ur Leukocyte Esterase NEGATIVE 05/19/19 05/19/19 09:05 09:05 WBC RBC Hgb Hct MCV MCH MCHC RDW Plt Count Seg Neutrophils % Lymphocytes % Monocytes % Eosinophils % Basophils % Absolute Neutrophils Absolute Lymphocytes Absolute Monocytes Absolute Eosinophils Absolute Basophils Carbonic Acid HCO3/H2CO3 Ratio ABG pH ABG pCO2 ABG pO2 ABG HCO3 ABG O2 Saturation ABG Base Excess FiO2 Sodium 141.3 Potassium 4.0 Chloride 109 H Carbon Dioxide 25 Anion Gap 7 BUN 13 Creatinine 0.83 Est GFR ( Amer) > 60 Est GFR (Non-Af Amer) > 60 Glucose 92 Calcium 9.1 Phosphorus Magnesium Total Bilirubin 0.6 AST 16 L ALT 27 Alkaline Phosphatase 95 Ammonia 8.9 L Total Protein 6.4 Albumin 3.7 Triglycerides 156 H Cholesterol 122.16 LDL Cholesterol Direct 51 VLDL Cholesterol 31.2 H HDL Cholesterol 43 TSH Free T4 Urine Color Urine Appearance Urine pH Ur Specific [place] Urine Protein Urine Glucose (UA) Urine Ketones Urine Blood Urine Nitrite Ur Leukocyte Esterase 05/18/19 05/18/19 05/19/19 20:15 20:15 02:00 Creatine Kinase 33 L 29 L CK-MB (CK-2) 0.35 Troponin I < 0.012 05/19/19 05/19/19 05/19/19 02:00 09:05 09:05 Creatine Kinase 32 L CK-MB (CK-2) 0.33 0.29 Troponin I < 0.012 < 0.012 05/19/19 05/19/19 15:25 15:35 Creatine Kinase 31 L CK-MB (CK-2) 0.23 Troponin I < 0.012 Impressions: Chest X-Ray 05/19/19 00:00 IMPRESSION: NO ACUTE RADIOGRAPHIC FINDING IN THE CHEST. Assessment & Plan - Diagnosis (1) Bilateral pulmonary embolism Is this a current diagnosis for this admission?: Yes Plan: Continue IV heparin, start pain medication
[2019-05-19 22:36] LABS: CREATINE KINASE MB 0.26 ng/mL (<4.55)
[2019-05-19 22:40] LABS: TROPONIN I < 0.012 ng/mL
[2019-05-20] MEDS: HEPARIN SODIUM,PORCINE/D5W 25,000 UNIT/250 ML RTUINJ IV PRN ×3 (04:31→19:00)
[2019-05-20] MEDS: NORMAL SALINE 1000 ML 1,000 ML IV PRN ×2 (04:31→19:00)
[2019-05-20 05:39] LABS: ABSOLUTE BASOPHILS # (AUTO) 0.1 10^3/uL (0.0-0.2); ABSOLUTE EOSINOPHILS # (AUTO) 0.6 10^3/uL (0.0-0.6); ABSOLUTE LYMPHOCYTES (AUTO) 1.8 10^3/uL (0.5-4.7); ABSOLUTE MONOCYTES (AUTO) 0.5 10^3/uL (0.1-1.4); ABSOLUTE NEUT (AUTO) 3.5 10^3/uL (1.7-8.2); BASOPHILS % (AUTO) 1.2 % (0-2); EOSINOPHILS % (AUTO) 9.8 % (0-6); LYMPHOCYTES % (AUTO) 27.1 % (13-45); MEAN CORPUSCULAR HEMOGLOBIN 28.9 pg (27.0-33.4); MEAN CORPUSCULAR HGB CONC 33.2 g/dL (32.0-36.0); MEAN CORPUSCULAR VOLUME 87 fl (80-97); MONOCYTES % (AUTO) 7.5 % (3-13); PLATELET COUNT 176 10^3/uL (150-450); RED BLOOD COUNT 4.15 10^6/uL (4.35-5.55); RED CELL DISTRIBUTION WIDTH 13.8 % (11.5-14.0); SEGMENTED NEUTROPHILS % (AUTO) 54.4 % (42-78); TOTAL CELLS COUNTED % (AUTO) 100 %; WHITE BLOOD COUNT 6.5 10^3/uL (4.0-10.5)
[2019-05-20 05:45] LABS: INTERNATIONAL RATION (INR) 1.02; PROTHROMBIN TIME 13.4 SEC (11.4-15.4)
[2019-05-20 05:46] LABS: PARTIAL THROMBOPLASTIN TIME 56.4 SEC (23.5-35.8)
[2019-05-20 06:10] LABS: ALANINE AMINOTRANSFERASE 28 U/L (21-72); ALBUMIN 3.3 g/dL (3.5-5.0); ALKALINE PHOSPHATASE 83 U/L (38-126); ANION GAP 7 (5-19); ASPARTATE AMINO TRANSFERASE 16 U/L (17-59); BILIRUBIN,DIRECT 0.1 mg/dL (0.0-0.4); BILIRUBIN,TOTAL 0.3 mg/dL (0.2-1.3); BLOOD UREA NITROGEN 14 mg/dL (7-20); CALCIUM 8.7 mg/dL (8.4-10.2); CARBON DIOXIDE 21 mmol/L (22-30); CHLORIDE 112 mmol/L (98-107); GLUCOSE 99 mg/dL (75-110); POTASSIUM 4.3 mmol/L (3.6-5.0); SODIUM 140.3 mmol/L (137-145); TOTAL PROTEIN 5.9 g/dL (6.3-8.2)
[2019-05-20] MEDS ORDERED: HEPARIN SOD (PORCINE) 1,000 UNIT/ML 10 ML VIAL IV PRN (08:00)
[2019-05-20] MEDS: PANTOPRAZOLE SODIUM 40 MG TABLET.DR PO SCH (08:27)
[2019-05-20] MEDS: AMLODIPINE BESYLATE 2.5 MG TABLET PO SCH (09:25)
[2019-05-20 15:42] LABS: INTERNATIONAL RATION (INR) 1.06; PROTHROMBIN TIME 13.8 SEC (11.4-15.4)
[2019-05-20 16:10] LABS: PARTIAL THROMBOPLASTIN TIME 130.1 SEC (23.5-35.8)
--- NOTE | 2019-05-20 20:33 | PDOC PROGRESS REPORT ---
Subjective Progress Note for:: 05/20/19 Subjective:: Patient was seen by the bedside, he had chest pain relieved with Percocet,I do not see any indication for transfer to tertiary, There is no indication for systemic thrombolysis, patient is hemodynamically stable Reason For Visit: SEVERE BILATERAL PULMONARY EMBOLISM Physical Exam Vital Signs: Temp Pulse Resp BP Pulse Ox 98.2 F 75 16 135/69 H 99 05/20/19 16:10 05/20/19 16:10 05/20/19 16:10 05/20/19 16:10 05/20/19 16:10 Intake & Output 05/19/19 05/20/19 05/21/19 06:59 06:59 06:59 Intake Total 243 1330 1681 Output Total 550 2050 1280 Balance -307 -720 401 Weight 89.4 kg 89 kg General appearance: PRESENT: no acute distress Head exam: PRESENT: atraumatic, normocephalic Eye exam: PRESENT: PERRLA Neck exam: PRESENT: full ROM Respiratory exam: PRESENT: clear to auscultation ashlee Cardiovascular exam: PRESENT: RRR, +S1, +S2 Pulses: PRESENT: normal dorsalis pedis pul, +2 pedal pulses bilateral Vascular exam: PRESENT: normal capillary refill GI/Abdominal exam: PRESENT: normal bowel sounds, soft Rectal exam: PRESENT: deferred Neurological exam: PRESENT: alert, awake, oriented to person, oriented to place, oriented to time, oriented to situation, CN II-XII grossly intact Psychiatric exam: PRESENT: appropriate affect, normal mood Skin exam: PRESENT: dry, intact, warm. ABSENT: cyanosis, rash Results Laboratory Results: 05/20/19 05:26 05/20/19 05:26 05/20/19 05/20/19 05/20/19 05:26 05:26 05:26 WBC 6.5 RBC 4.15 L Hgb 12.0 L Hct 36.0 L MCV 87 MCH 28.9 MCHC 33.2 RDW 13.8 Plt Count 176 Seg Neutrophils % 54.4 Lymphocytes % 27.1 Monocytes % 7.5 Eosinophils % 9.8 H Basophils % 1.2 Absolute Neutrophils 3.5 Absolute Lymphocytes 1.8 Absolute Monocytes 0.5 Absolute Eosinophils 0.6 Absolute Basophils 0.1 Sodium 140.3 Potassium 4.3 Chloride 112 H Carbon Dioxide 21 L Anion Gap 7 BUN 14 Creatinine 0.84 Est GFR ( Amer) > 60 Est GFR (Non-Af Amer) > 60 Glucose 99 Calcium 8.7 Total Bilirubin 0.3 AST 16 L ALT 28 Alkaline Phosphatase 83 Ammonia < 8.7 L Total Protein 5.9 L Albumin 3.3 L 05/19/19 00:35 Clean Catch Midstream Urine Culture - Final 2,000 col/ml 05/18/19 05/18/19 05/19/19 20:15 20:15 02:00 Creatine Kinase 33 L 29 L CK-MB (CK-2) 0.35 Troponin I < 0.012 05/19/19 05/19/19 05/19/19 02:00 09:05 09:05 Creatine Kinase 32 L CK-MB (CK-2) 0.33 0.29 Troponin I < 0.012 < 0.012 05/19/19 05/19/19 05/19/19 15:25 15:35 21:26 Creatine Kinase 31 L 28 L CK-MB (CK-2) 0.23 Troponin I < 0.012 05/19/19 21:26 Creatine Kinase CK-MB (CK-2) 0.26 Troponin I < 0.012 Impressions: Chest X-Ray 05/19/19 00:00 IMPRESSION: NO ACUTE RADIOGRAPHIC FINDING IN THE CHEST. Assessment & Plan - Diagnosis (1) Bilateral pulmonary embolism Is this a current diagnosis for this admission?: Yes Plan: Continue IV heparin
[2019-05-21 06:25] LABS: INTERNATIONAL RATION (INR) 1.01; PROTHROMBIN TIME 13.3 SEC (11.4-15.4)
[2019-05-21 06:27] LABS: PARTIAL THROMBOPLASTIN TIME 94.5 SEC (23.5-35.8)
[2019-05-21 06:32] LABS: ABSOLUTE BASOPHILS # (AUTO) 0.1 10^3/uL (0.0-0.2); ABSOLUTE EOSINOPHILS # (AUTO) 0.9 10^3/uL (0.0-0.6); ABSOLUTE LYMPHOCYTES (AUTO) 1.6 10^3/uL (0.5-4.7); ABSOLUTE MONOCYTES (AUTO) 0.4 10^3/uL (0.1-1.4); ABSOLUTE NEUT (AUTO) 2.9 10^3/uL (1.7-8.2); EOSINOPHILS % (AUTO) 15.7 % (0-6); HEMATOCRIT 37.7 % (37.9-51.0); HEMOGLOBIN 12.4 g/dL (13.5-17.0); LYMPHOCYTES % (AUTO) 27.2 % (13-45); MEAN CORPUSCULAR HEMOGLOBIN 28.6 pg (27.0-33.4); MEAN CORPUSCULAR HGB CONC 32.9 g/dL (32.0-36.0); MEAN CORPUSCULAR VOLUME 87 fl (80-97); MONOCYTES % (AUTO) 6.2 % (3-13); PLATELET COUNT 191 10^3/uL (150-450); RED BLOOD COUNT 4.33 10^6/uL (4.35-5.55); RED CELL DISTRIBUTION WIDTH 14.1 % (11.5-14.0); SEGMENTED NEUTROPHILS % (AUTO) 49.9 % (42-78); TOTAL CELLS COUNTED % (AUTO) 100 %; WHITE BLOOD COUNT 5.7 10^3/uL (4.0-10.5)
[2019-05-21 06:50] LABS: ALANINE AMINOTRANSFERASE 32 U/L (21-72); ALBUMIN 3.9 g/dL (3.5-5.0); ALKALINE PHOSPHATASE 94 U/L (38-126); ANION GAP 7 (5-19); ASPARTATE AMINO TRANSFERASE 30 U/L (17-59); BILIRUBIN,DIRECT 0.2 mg/dL (0.0-0.4); BILIRUBIN,TOTAL 0.4 mg/dL (0.2-1.3); BLOOD UREA NITROGEN 13 mg/dL (7-20); CALCIUM 9.1 mg/dL (8.4-10.2); CARBON DIOXIDE 24 mmol/L (22-30); CHLORIDE 110 mmol/L (98-107); GLUCOSE 96 mg/dL (75-110); POTASSIUM 4.2 mmol/L (3.6-5.0); SODIUM 140.8 mmol/L (137-145); TOTAL PROTEIN 6.8 g/dL (6.3-8.2)
[2019-05-21] MEDS: PANTOPRAZOLE SODIUM 40 MG TABLET.DR PO SCH (08:26)
[2019-05-21] MEDS: NORMAL SALINE 1000 ML 1,000 ML IV PRN (08:26)
[2019-05-21] MEDS: AMLODIPINE BESYLATE 2.5 MG TABLET PO SCH (09:40)
[2019-05-21] MEDS: HEPARIN SODIUM,PORCINE/D5W 25,000 UNIT/250 ML RTUINJ IV PRN (09:45)
[2019-05-21] MEDS ORDERED: APIXABAN 5 MG TABLET PO SCH (13:30)
[2019-05-21 17:29] VITALS: BP 122/68
--- NOTE | 2019-05-21 20:09 | PDOC DISCHARGE SUMMARY ---
General - Admit/Disc Date/PCP Admission Date/Primary Care Provider: 05/18/19 13:57 ADOLFO ROBLERO MD Discharge Date: 05/21/19 - Discharge Diagnosis (1) Bilateral pulmonary embolism Is this a current diagnosis for this admission?: Yes - Additional Information Resuscitation Status: Full Code Discharge Diet: Cardiac Discharge Activity: Activity As Tolerated Prescriptions: Apixaban [Eliquis 5 mg Tablet] 5 mg PO Q12 #60 tablet Home Medications: Amlodipine Besylate [Norvasc 2.5 mg Tablet] 2.5 mg PO DAILY 05/18/19 Montelukast Sodium [Singulair 10 mg Tablet] 10 mg PO QHS 05/18/19 Pantoprazole Sodium [Protonix [address] Tablet] 40 mg PO QAM 05/18/19 Pravastatin Sodium 40 mg PO DAILY 05/18/19 Apixaban [Eliquis 5 mg Tablet] 5 mg PO Q12 #60 tablet 05/21/19 History of Present Illness History of Present Illness: HIRA WELLS is a 73 year old male,He came to the office today for regular follow-up evaluation, he recently underwent a right total hip joint replacement uremic seen on April 27, 2019. He complained of episodes of shortness of breath, I was somewhat concerned especially because he just recently underwent right hip replacement and he was not on any anticoagulant. I suspected pulmonary embolism, I requested for a stat CT angiogram of the chest. It demonstrated central, lobar, segmental/subsegmental pulmonary emboli bilaterally with evidence of breath and strain and elevated right-sided pressures I was called by the radiologist about the results of the CT angiogram, he was then referred to the ER to initiate management. Hospital Course Hospital Course: Patient was admitted for the management of bilateral pulmonary embolism, he recently had right hip joint replacement For 3 weeks before the episode of pulmonary embolism, He was treated with intravenous heparin, he had episode of chest pain which is expected in the setting of pulmonary embolism, 2D echo was done, it demonstrated preserved ejection fraction of left ventricle with mild evidence of right heart strain.There was no indication for systemic thrombolysis because patient remained hemodynamically stable throughout hospital stay. Patient requested for a transfer to another hospital because he was advised by hospital staff to do so, I indicated to him that there was no indication for hospital transfer that nothing different will be done for his management.He remained stable throughout hospital stay Physical Exam Vital Signs: Temp Pulse Resp BP Pulse Ox 98.8 F 71 16 122/68 97 05/21/19 17:26 05/21/19 17:26 05/21/19 17:26 05/21/19 17:26 05/21/19 17:26 Intake & Output 05/20/19 05/21/19 05/22/19 06:59 06:59 06:59 Intake Total 1330 3456 2458 Output Total 2050 3405 700 Balance -672 96 9882 Weight 89 kg 88.9 kg General appearance: PRESENT: no acute distress, well-developed, well-nourished Head exam: PRESENT: atraumatic, normocephalic Eye exam: PRESENT: conjunctiva pink, EOMI, PERRLA Ear exam: PRESENT: normal external ear exam Mouth exam: PRESENT: moist, tongue midline Neck exam: PRESENT: full ROM Respiratory exam: PRESENT: clear to auscultation ashlee Cardiovascular exam: PRESENT: RRR, +S1, +S2 Pulses: PRESENT: normal dorsalis pedis pul, +2 pedal pulses bilateral Vascular exam: PRESENT: normal capillary refill GI/Abdominal exam: PRESENT: normal bowel sounds, soft Rectal exam: PRESENT: deferred Neurological exam: PRESENT: alert, awake, oriented to person, oriented to place, oriented to time, oriented to situation, CN II-XII grossly intact Psychiatric exam: PRESENT: appropriate affect, normal mood Skin exam: PRESENT: dry, intact, warm Results Laboratory Results: 05/21/19 06:05 05/21/19 06:05 05/21/19 05/21/19 05/21/19 06:05 06:05 06:05 WBC 5.7 RBC 4.33 L Hgb 12.4 L Hct 37.7 L MCV 87 MCH 28.6 MCHC 32.9 RDW 14.1 H Plt Count 191 Seg Neutrophils % 49.9 Lymphocytes % 27.2 Monocytes % 6.2 Eosinophils % 15.7 H Basophils % 1.0 Absolute Neutrophils 2.9 Absolute Lymphocytes 1.6 Absolute Monocytes 0.4 Absolute Eosinophils 0.9 H Absolute Basophils 0.1 Sodium 140.8 Potassium 4.2 Chloride 110 H Carbon Dioxide 24 Anion Gap 7 BUN 13 Creatinine 0.81 Est GFR ( Amer) > 60 Est GFR (Non-Af Amer) > 60 Glucose 96 Calcium 9.1 Total Bilirubin 0.4 AST 30 ALT 32 Alkaline Phosphatase 94 Ammonia 13.3 Total Protein 6.8 Albumin 3.9 Stool Occult Blood 05/21/19 10:20 WBC RBC Hgb Hct MCV MCH MCHC RDW Plt Count Seg Neutrophils % Lymphocytes % Monocytes % Eosinophils % Basophils % Absolute Neutrophils Absolute Lymphocytes Absolute Monocytes Absolute Eosinophils Absolute Basophils Sodium Potassium Chloride Carbon Dioxide Anion Gap BUN Creatinine Est GFR ( Amer) Est GFR (Non-Af Amer) Glucose Calcium Total Bilirubin AST ALT Alkaline Phosphatase Ammonia Total Protein Albumin Stool Occult Blood NEGATIVE 05/18/19 05/18/19 05/19/19 20:15 20:15 02:00 Creatine Kinase 33 L 29 L CK-MB (CK-2) 0.35 Troponin I < 0.012 05/19/19 05/19/19 05/19/19 02:00 09:05 09:05 Creatine Kinase 32 L CK-MB (CK-2) 0.33 0.29 Troponin I < 0.012 < 0.012 05/19/19 05/19/19 05/19/19 15:25 15:35 21:26 Creatine Kinase 31 L 28 L CK-MB (CK-2) 0.23 Troponin I < 0.012 05/19/19 21:26 Creatine Kinase CK-MB (CK-2) 0.26 Troponin I < 0.012 Impressions: Chest X-Ray 05/19/19 00:00 IMPRESSION: NO ACUTE RADIOGRAPHIC FINDING IN THE CHEST. Qualifiers - * PATIENT BEING DISCHARGED WITH ANY OF THE FOLLOWING DIAGNOSIS: No VTE patient discharged on overlapping Therapy?: No Reason(s) for not prescribing Overlap Therapy:: Not indicated Stroke Pt being discharged on Anti-thrombolytic therapy?: No Reason(s) for not prescribing Anti-thrombolytic therapy:: Not indicated Stroke Pt being discharged on Anti-coagulation therapy?: No Reason(s) for not prescribing Anti-coagulation therapy:: Not indicated Stroke Pt being discharged on Statins?: No Reason(s) for not prescribing Statins therapy:: Not indicated MD Pt being discharged on Aspirin therapy?: No Reason(s) for not prescribing Aspirin therapy:: Not indicated MD Pt being discharged on Statins?: No Reason(s) for not prescribing Statin therapy:: Not indicated MD Pt discharged ACEI/ARBS?: No Reason(s) for not prescribing ACEI/ARBS:: Not indicated Acute Heart Failure - Is this a Heart Failure Patient?: No e) For LVEF <35%, discharged on Aldosterone antagonist?: N/A (LVEF > or = 35%)
== END 2019-05-21 18:34 | disposition home or self-care (01) | DRG 176 ==
LOC: ER 12:01 → EH 13:57 → 3S 05-19 02:29
PROVIDERS: ADMIT Internal Medicine; ATTEND Internal Medicine
DX: I26.99 Other pulmonary embolism without acute cor pulmonale (principal); I10 Essential (primary) hypertension; G47.30 Sleep apnea, unspecified; K21.9 Gastro-esophageal reflux disease without esophagitis; Z79.899 Other long term (current) drug therapy; Z87.891 Personal history of nicotine dependence; Z91.040 Latex allergy status; Z91.048 Other nonmedicinal substance allergy status
CPT/HCPCS: 36415; 71045; 80048; 80053; 80061; 80076; 80307; 81001; 82140; 82272; 82550; 82553; 82803; 82962; 83036; 83735; 84100; 84439; 84443; 84484; 85025; 85610; 85730; 87040; 87086; 93005; 93010; 93306; 99285; J1644; J2270; J3490; J7030

== ENCOUNTER → 2019-05-18 | Outpatient (CLI) | payer MEDICARE, BC ==
--- NOTE | 2019-05-18 12:08 | RADIOLOGY REPORT (SQ) ---
EXAM DESCRIPTION: CTA CHEST COMPLETED DATE/TIME: 05/18/2019 11:55 am REASON FOR STUDY: SOB (R06.02) R06.02 SHORTNESS OF BREATH COMPARISON: 12/19/2017 TECHNIQUE: CT scan of the chest performed using helical scanning technique with dynamic intravenous contrast injection. Images reviewed with lung, soft tissue and bone windows. Reconstructed coronal and sagittal MPR images reviewed. Additional 3 dimensional post-processing performed to develop Maximal Intensity Projection images (ME P). All images stored on PACS. All CT scanners at this facility use dose modulation, iterative reconstruction, and/or weight based d osing when appropriate to reduce radiation dose to as low as reasonably achievable (ALARA). [facility]: Dose Right [facility]: CareDose [facility]: Dose Right [facility]: Teradose 4D [facility]: MyEnergy CONTRAST TYPE AND DOSE: contrast/concentration: Isovue 350.00 mg/ml; Total Contrast Delivered: 59.0 ml; Total Saline Delivered: 78.0 ml Contrast bolus adequate for pulmonary arteries and aorta. RENAL FUNCTION: Creatinine 0.5 RADIATION DOSE: CT Rad equipment meets quality standard of care and radiation dose reduction techniq ues were employed. CTDIvol: 7.5 - 14.1 mGy. DLP: 493 mGy-cm. . LIMITATIONS: None. FINDINGS: LUNGS AND PLEURA: Mild dependent hypoventilatory change bilaterally. No dense consolidati on. No pleural effusion or pneumothorax. No discrete masses. Lingular scarring. AORTA AND GREAT VESSELS: Aortic atherosclerosis. No aneurysm. No dissection. HEART: Scattered coronary atherosclerosis. Abnormal right to left ventricular ratio with enlarged ri ght ventricle and flattening of the interventricular septum suggestive of elevated right heart pressu res. No significant pericardial effusion. PULMONARY ARTERIES: There are bilateral lobar, segmental and subsegmental pulmonary emboli. Addition al linear saddle pulmonary embolus component. There is evidence of elevated right heart pressures. HILAR AND MEDIASTINAL STRUCTURES: No identified masses or abnormal nodes. HARDWARE: None in the chest. UPPER ABDOMEN: No significant findings. Limited exam. THYROID AND OTHER SOFT TISSUES: No masses. No adenopathy. BONES: No acute or significant finding. 3D MIPS: Confirm above findings. OTHER: No other significant finding. IMPRESSION: Central, lobar and segmental/ subsegmental pulmonary emboli bilaterally with evidence of right heart strain and elevated right-sided pressures. Pertinent positive or negative findings of the imaging study reported as a CRITICAL EXAM to ADOLFO ROBLERO MD at12:00 on 05/18/2019. Category of Critical Exam: Bilateral pulmonary embolus with evidence of right heart strain. COMMENT: Quality ID # [id number]: Final reports with documentation of one or more dose reduction techniques (e.g., Automated exposure control, adjustment of the mA and/or kV according to patient size, use of iterative reconstruction technique) TECHNICAL DOCUMENTATION: JOB ID: [id number] [employer]- All Rights Reserved Reading location - IP/workstation name: [email or web address]-
== END ==
LOC: RAD 10:30
PROVIDERS: ATTEND Internal Medicine
DX: I26.99 Other pulmonary embolism without acute cor pulmonale (principal); R06.02 Shortness of breath
CPT/HCPCS: 71275; 82565

== ENCOUNTER → 2019-11-16 | Outpatient (CLI) | payer MEDICARE, BC ==
--- NOTE | 2019-11-16 11:20 | RADIOLOGY REPORT (SQ) ---
EXAM DESCRIPTION: CTA CHEST COMPLETED DATE/TIME: 11/16/2019 10:56 am REASON FOR STUDY: OTHER PULMONARY EMBOLISM WITHOUT ACUTE COR PULMONALE I26.99 OTHER PULMONARY EMBOL ISM WITHOUT ACUTE COR PULMONALE Recent pulmonary emboli in May 2019, now with recurrent shortness of breath and chest pain COMPARISON: CT angio chest 05/18/2019 TECHNIQUE: CT scan of the chest performed using helical scanning technique with dynamic intravenous contrast injection. Images reviewed with lung, soft tissue and bone windows. Reconstructed coronal and sagittal MPR images reviewed. Additional 3 dimensional post-processing performed to develop Maximal Intensity Projection images (ND P). All images stored on PACS. All CT scanners at this facility use dose modulation, iterative reconstruction, and/or weight based d osing when appropriate to reduce radiation dose to as low as reasonably achievable (ALARA). [facility]: Dose Right [facility]: CareDose [facility]: Dose Right [facility]: Teradose 4D [facility]: [employer] CONTRAST TYPE AND DOSE: contrast/concentration: Isovue 350.00 mg/ml; Total Contrast Delivered: 60.0 ml; Total Saline Delivered: 80.0 ml Contrast bolus adequate for pulmonary arteries and aorta. RENAL FUNCTION: Creatinine 1.0 RADIATION DOSE: CT Rad equipment meets quality standard of care and radiation dose reduction techniq ues were employed. CTDIvol: 7.5 - 14.7 mGy. DLP: 555 mGy-cm. . LIMITATIONS: None. FINDINGS: LUNGS AND PLEURA: No acute infiltrates. Mild obstructive lung disease with enlarged airsp aces. No pleural effusion. No pneumothorax. No worrisome pulmonary nodules. AORTA AND GREAT VESSELS: No thoracic aortic aneurysm or dissection. HEART: Physiologic pericardial fluid is present. No significant coronary artery calcifications. PULMONARY ARTERIES: The previous study 05/18/2019 demonstrated a heavy burden of pulmonary emboli bila terally. On the current exam, a small filling defect is present in the right lower lobe posterior ba steven segmental pulmonary artery on axial images 65-68. It is difficult to discern whether this repres ents residual clot from the event in May 2019, or whether this represents a tiny new clot. Remainder of the pulmonary arteries are otherwise unremarkable. HILAR AND MEDIASTINAL STRUCTURES: No identified masses or abnormal nodes. HARDWARE: None in the chest. UPPER ABDOMEN: Small hiatal hernia. THYROID AND OTHER SOFT TISSUES: No masses. No adenopathy. BONES: No acute or significant finding. 3D MIPS: Confirm above findings. OTHER: No other significant finding. IMPRESSION: Tiny filling defect in the right lower lobe posterior basal segmental pulmonary artery. It is difficult to discern whether this is acute clot or residual from large pulmonary emboli seen i n May 2019. COMMENT: Quality ID # [id number]: Final reports with documentation of one or more dose reduction techniques (e.g., Automated exposure control, adjustment of the mA and/or kV according to patient size, use of iterative reconstruction technique) TECHNICAL DOCUMENTATION: JOB ID: [id number]- All Rights Reserved Reading location - IP/workstation name: [email or web address]
== END ==
LOC: RAD 10:25
PROVIDERS: ATTEND Internal Medicine
DX: I26.99 Other pulmonary embolism without acute cor pulmonale (principal)
CPT/HCPCS: 71275; 82565

== ENCOUNTER 2020-04-29 14:36 | Inpatient (IN) | payer MEDICARE, BC ==
--- NOTE | 2020-04-29 15:05 | ER Document Report ---
ED General - General Chief Complaint: Shortness Of Breath Stated Complaint: CHEST PRESSURE/SHORTNESS OF BREATH Time Seen by Provider: 04/29/20 14:52 Primary Care Provider: ADOLFO ROBLERO MD [Primary Care Provider] - Follow up as needed Mode of Arrival: Ambulatory Information source: Patient Notes: 74-year-old male arrives with chief complaint of shortness of breath and anterior chest pain that occurred around 12 noon today. Patient is status post left TKA by Dr. Kirkpatrick orth[facility] in [place]. He had his right knee replaced by Dr. Sanchez around 7 years ago. Patient had his right hip replaced last year by the same orthopedics who worked on his left knee. Last year for follow-up he saw Dr. Roblero his PMD and was diagnosed with dyspnea and sent to the ER and on CT found to have bilateral pulmonary emboli and also a saddle clot. Patient was off of his usual Eliquis for 3 weeks. He was restarted this week with Eliquis 2.5 twice daily. Patient's vital signs did upon arrival was 75 heart rate 100% saturation 24 respirations per minute and blood pressure 161/86. He is a good historian and very nice fellow. TRAVEL OUTSIDE OF THE [place] IN LAST 30 DAYS: No - HPI Onset: Just prior to arrival Onset/Duration: Sudden, Persistent Quality of pain: Achy Severity: Mild Pain Level: 1 Associated symptoms: Shortness of breath Exacerbated by: Movement Relieved by: Remaining still Similar symptoms previously: Yes Recently seen / treated by doctor: Yes - Related Data Allergies/Adverse Reactions: adhesive tape [Adhesive Tape] Allergy (Intermediate, Verified 05/18/19 12:16) Hives latex [Latex] Allergy (Intermediate, Verified 05/18/19 12:16) Hives Past Medical History - General Information source: Patient - Social History Smoking Status: Former Smoker Cigarette use (# per day): No - Patient advises he stopped smoking in 1993 and began in 1963. Chew tobacco use (# tins/day): No Smoking Education Provided: No Frequency of alcohol use: None Lives with: Family Family History: Reviewed & Not Pertinent Patient has suicidal ideation: No Patient has homicidal ideation: No - Past Medical History Cardiac Medical History: Reports: Hx Hypertension - meds x 2 years Denies: Hx Heart Attack Pulmonary Medical History: Reports: Hx Sleep Apnea - CPAP ordered, ill fitting, does NOT use Denies: Hx Pneumonia Renal/ Medical History: Reports: Hx Benign Prostatic Hyperplasia - Bx 2012 after elevated PSA test, path results negative. Denies: Hx Peritoneal Dialysis Malignancy Medical History: Denies Hx Lung Cancer GI Medical History: Reports: Hx Gastroesophageal Reflux Disease - prior to Yoni fundoplication 1999, Hx Hiatal Hernia - prior to Yoni fundoplication 1999 Musculoskeletal Medical History: Reports Hx Arthritis, Denies Hx Fibromyalgia, Denies Hx Muscular Dystrophy Traumatic Medical History: Reports: Hx Fractures - RT arm, as child, closed reduction/casting Past Surgical History: Reports: Hx Abdominal Surgery, Hx Herniorrhaphy - RIGHT inguinal with mesh, Hx Orthopedic Surgery, Hx Tonsillectomy. Denies: Hx Appendectomy, Hx Bowel Surgery, Hx Cholecystectomy, Hx Colostomy, Hx Coronary Artery Bypass Graft, Hx Gastric Bypass Surgery - Immunizations Hx Pneumococcal Vaccination: 11/03/11 Review of Systems - Review of Systems Constitutional: See HPI, Weakness EENT: No symptoms reported Cardiovascular: See HPI, Chest pain, Orthopnea Respiratory: See HPI, Short of breath Gastrointestinal: No symptoms reported Genitourinary: No symptoms reported Male Genitourinary: No symptoms reported Musculoskeletal: No symptoms reported Skin: No symptoms reported Hematologic/Lymphatic: No symptoms reported Neurological/Psychological: No symptoms reported Physical Exam - Vital signs Vitals: Temp Pulse Ox 97.8 F 98 04/29/20 14:36 04/29/20 14:36 Interpretation: Normal - General General appearance: Alert - HEENT Head: Normocephalic, Atraumatic Eyes: Normal Pupils: PERRL Mouth/Lips: Other Mucous membranes: Normal Pharynx: Normal Neck: Normal - Respiratory Respiratory status: No respiratory distress Chest status: Nontender Breath sounds: Normal Chest palpation: Normal - Cardiovascular Rhythm: Regular Heart sounds: Normal auscultation Murmur: No - Abdominal Inspection: Normal Distension: No distension Bowel sounds: Normal Tenderness: Nontender Organomegaly: No organomegaly - Rectal Hemorrhoids: Other - deferred - Genitourinary Scrotum: Other - deferred - Back Back: Normal - Extremities General upper extremity: Normal inspection, Nontender, Normal color, Normal ROM, Normal temperature General lower extremity: Normal inspection, Nontender, Normal color, Normal ROM, Normal temperature, Normal weight bearing. No: Hernesto's sign - Neurological Neuro grossly intact: Yes Cognition: Normal Orientation: AAOx4 [place] Coma Scale Eye Opening: Spontaneous [place] Coma Scale Verbal: Oriented [place] Coma Scale Motor: Obeys Commands Latasha Coma Scale Total: 15 Speech: Normal Motor strength normal: LUE, RUE, LLE, RLE Sensory: Normal - Psychological Associated symptoms: Normal affect - Skin Skin Temperature: Warm Skin Moisture: Dry Course - Vital Signs Vital signs: Temp Pulse Resp BP Pulse Ox 97.8 F 19 125/80 97 04/29/20 14:36 04/29/20 16:01 04/29/20 16:01 04/29/20 16:01 - Laboratory Result Diagrams: 04/29/20 14:50 04/29/20 14:50 Laboratory results interpreted by me: 04/29/20 04/29/20 04/29/20 14:50 14:50 14:50 Hgb 13.4 L Eos % (Auto) 6.6 H D-Dimer 1.53 H Chloride 111 H Glucose 117 H Creatine Kinase 39 L - Diagnostic Test Radiology reviewed: Reports reviewed Critical Care Note - Critical Care Note Total time excluding time spent on procedures (mins): 90 Comments: I spoke with Dr. Arredondo at 1728 and he advises admission and rule out MD and I a lso spoke with Dr. Baker battery inspector for potential for ICU but he advises with normal vital signs and oxygenation he may be admitted to IMCU. I then called Dr. Roblero who is off today and spoke with Dr. Leyva at 1740 and he advises IMCU with heparin and Dr. Arredondo consult and oral full dose Eliquis Discharge - Discharge Clinical Impression: Chest pain at rest, Pulmonary embolism Condition: Good Disposition: ADMITTED INPATIENT Admitting Provider: Dilip Unit Admitted: IMCU Referrals: ADOLFO ROBLERO MD [Primary Care Provider] - Follow up as needed
[2020-04-29 15:10] LABS: ABSOLUTE BASOPHILS # (AUTO) 0.1 10^3/uL (0.0-0.2); ABSOLUTE EOSINOPHILS # (AUTO) 0.6 10^3/uL (0.0-0.6); ABSOLUTE LYMPHOCYTES (AUTO) 1.8 10^3/uL (0.5-4.7); ABSOLUTE MONOCYTES (AUTO) 0.7 10^3/uL (0.1-1.4); ABSOLUTE NEUT (AUTO) 5.8 10^3/uL (1.7-8.2); BASOPHILS % (AUTO) 0.6 % (0-2); EOSINOPHILS % (AUTO) 6.6 % (0-6); HEMATOCRIT 39.2 % (37.9-51.0); HEMOGLOBIN 13.4 g/dL (13.5-17.0); LYMPHOCYTES % (AUTO) 20.4 % (13-45); MEAN CORPUSCULAR HEMOGLOBIN 29.6 pg (27.0-33.4); MEAN CORPUSCULAR HGB CONC 34.2 g/dL (32.0-36.0); MEAN CORPUSCULAR VOLUME 86 fl (80-97); MONOCYTES % (AUTO) 7.6 % (3-13); PLATELET COUNT 257 10^3/uL (150-450); RED BLOOD COUNT 4.54 10^6/uL (4.35-5.55); SEGMENTED NEUTROPHILS % (AUTO) 64.8 % (42-78); TOTAL CELLS COUNTED % (AUTO) 100 %; WHITE BLOOD COUNT 8.9 10^3/uL (4.0-10.5)
[2020-04-29 15:15] LABS: ALBUMIN 3.7 g/dL (3.5-5.0); ALKALINE PHOSPHATASE 60 U/L (38-126); ANION GAP 7 (5-19); ASPARTATE AMINO TRANSFERASE 20 U/L (17-59); BILIRUBIN,TOTAL 0.7 mg/dL (0.2-1.3); BLOOD UREA NITROGEN 20 mg/dL (7-20); CALCIUM 9.3 mg/dL (8.4-10.2); CARBON DIOXIDE 22 mmol/L (22-30); CHLORIDE 111 mmol/L (98-107); CREATINE KINASE 39 U/L (55-170); GLUCOSE 117 mg/dL (75-110); POTASSIUM 4.1 mmol/L (3.6-5.0); TOTAL PROTEIN 6.6 g/dL (6.3-8.2)
[2020-04-29 15:27] LABS: CREATINE KINASE MB 0.41 ng/mL (<4.55)
--- NOTE | 2020-04-29 15:28 | RADIOLOGY REPORT (SQ) ---
EXAM DESCRIPTION: CHEST SINGLE VIEW IMAGES COMPLETED DATE/TIME: 04/29/2020 2:03 pm REASON FOR STUDY: bed 18 short of breath COMPARISON: 05/19/2019 EXAM PARAMETERS: NUMBER OF VIEWS: One view. TECHNIQUE: Single frontal radiographic view of the chest acquired. RADIATION DOSE: NA LIMITATIONS: None. FINDINGS: LUNGS AND PLEURA: No opacities, masses or pneumothorax. No pleural effusion. MEDIASTINUM AND HILAR STRUCTURES: No masses. Contour normal. HEART AND VASCULAR STRUCTURES: Heart normal in size. Normal vasculature. BONES: No acute findings. HARDWARE: None in the chest. OTHER: No other significant finding. IMPRESSION: NO ACUTE RADIOGRAPHIC FINDING IN THE CHEST. TECHNICAL DOCUMENTATION: JOB ID: [id number] 2010 [employer]- All Rights Reserved Reading location - IP/workstation name: [email or web address]
[2020-04-29 15:29] LABS: TROPONIN I < 0.012 ng/mL
--- NOTE | 2020-04-29 16:55 | RADIOLOGY REPORT (SQ) ---
EXAM DESCRIPTION: CTA CHEST IMAGES COMPLETED DATE/TIME: 04/29/2020 4:19 pm REASON FOR STUDY: bed 18 chest pain/short of breath per [place] COMPARISON: CT angiogram chest 11/16/2019, 05/18/2019. TECHNIQUE: CT scan of the chest performed using helical scanning technique with dynamic intravenous contrast injection. Images reviewed with lung, soft tissue and bone windows. Reconstructed coronal and sagittal MPR images reviewed. Additional 3 dimensional post-processing performed to develop Maximal Intensity Projection images (NC P). All images stored on PACS. All CT scanners at this facility use dose modulation, iterative reconstruction, and/or weight based d osing when appropriate to reduce radiation dose to as low as reasonably achievable (ALARA). [facility]: Dose Right [facility]: CareDose [facility]: Dose Right [facility]: Teradose 4D [facility]: [employer] CONTRAST TYPE AND DOSE: contrast/concentration: Isovue 350.00 mmol/ml; Total Contrast Delivered: 61. 0 ml; Total Saline Delivered: 80.0 ml Contrast bolus adequate for pulmonary arteries and aorta. RENAL FUNCTION: Creatinine 1.14 RADIATION DOSE: CT Rad equipment meets quality standard of care and radiation dose reduction techniq ues were employed. CTDIvol: 18.1 - 26.4 mGy. DLP: 642 mGy-cm. . LIMITATIONS: There is motion artifact. FINDINGS: LUNGS AND PLEURA: The evaluation of the lungs is degraded by motion artifact. No consolid ation, pleural effusion or pneumothorax. Mild atelectasis at the bilateral lower lobes. Mild emphys ematous changes at the bilateral upper lobes. AORTA AND GREAT VESSELS: No thoracic aortic aneurysm or acute dissection. Scattered atherosclerotic calcifications within the thoracic aorta. HEART: The heart is enlarged. No pericardial effusion. Scattered coronary artery calcifications. PULMONARY ARTERIES: There is a small filling defect within the right lower lobe posterior basal segme ntal pulmonary artery. No other filling defects are identified within the visualized pulmonary arter ies. HILAR AND MEDIASTINAL STRUCTURES: No identified masses or abnormal nodes. HARDWARE: None in the chest. UPPER ABDOMEN: There is colonic diverticulosis. There is minimal soft tissue stranding adjacent to a diverticulum at the ascending colon. BONES: Multilevel degenerative changes at the spine. 3D MIPS: Confirm above findings. IMPRESSION: 1. Study degraded by motion artifact. Small filling defect within the right lower lobe posterior basal segmental pulmonary artery, may represent residual/ chronic pulmonary embolus versus small acute pulmonary embolus. 2. Cardiomegaly. Coronary artery calcifications. 3. Mild emphysema. Mild bibasilar atelectasis. 4. Colonic diverticulosis. Minimal soft tissue stranding adjacent to a diverticulum at the ascendin g colon, may be secondary to motion artifact versus mild/early acute diverticulitis. Clinical correl ation recommended. COMMENT: Quality ID # [id number]: Final reports with documentation of one or more dose reduction techniques (e.g., Automated exposure control, adjustment of the mA and/or kV according to patient size, use of iterative reconstruction technique) TECHNICAL DOCUMENTATION: JOB ID: [id number] 2010 [employer]- All Rights Reserved Reading location - IP/workstation name: [email or web address]
[2020-04-29 17:15] LABS: APPEARANCE,URINE CLEAR; BILIRUBIN,URINE NEGATIVE (NEGATIVE); COLOR,URINE YELLOW; GLUCOSE, URINE NEGATIVE (NEGATIVE); KETONES,URINE NEGATIVE (NEGATIVE); LEUKOCYTE ESTERASE,URINE NEGATIVE (NEGATIVE); NITRITE,URINE NEGATIVE (NEGATIVE); PROTEIN,URINE NEGATIVE (NEGATIVE); URINE SPECIFIC GRAVITY 1.011; UROBILINOGEN,URINE NEGATIVE mg/dL (<2.0)
[2020-04-29] MEDS ORDERED: MORPHINE SULFATE 10 MG/ML INJ IV ONE (17:25)
[2020-04-29] MEDS ORDERED: APIXABAN 5 MG TABLET PO ONE (17:51)
[2020-04-29] MEDS ORDERED: ASPIRIN 81 MG TABLET, CHEWABLE PO ONE (17:51)
[2020-04-29] MEDS ORDERED: HEPARIN SOD (PORCINE) 1,000 UNIT/ML 1 ML VIAL IV ONE (17:53)
[2020-04-29] MEDS ORDERED: [UNRECOGNIZED DRUG - OTHER] IV PRN (19:53)
[2020-04-29] MEDS ORDERED: DEXTROSE IV PRN (19:53)
--- NOTE | 2020-04-29 20:52 | EKG REPORT ---
SEVERITY:- ABNORMAL ECG - SINUS RHYTHM FIRST DEGREE AV BLOCK : Confirmed by: Dodie Atkins 29-Apr-2020 20:52:10
[2020-04-29 21:20] LABS: TROPONIN I < 0.012 ng/mL
[2020-04-29] MEDS ORDERED: OXYCODONE-ACETAMINOPHEN 5-325 MG TABLET PO PRN (21:23)
[2020-04-29 21:51] LABS: ABSOLUTE BASOPHILS # (AUTO) 0.1 10^3/uL (0.0-0.2); ABSOLUTE EOSINOPHILS # (AUTO) 0.7 10^3/uL (0.0-0.6); ABSOLUTE LYMPHOCYTES (AUTO) 2.2 10^3/uL (0.5-4.7); ABSOLUTE MONOCYTES (AUTO) 0.6 10^3/uL (0.1-1.4); ABSOLUTE NEUT (AUTO) 5.4 10^3/uL (1.7-8.2); BASOPHILS % (AUTO) 0.8 % (0-2); EOSINOPHILS % (AUTO) 7.9 % (0-6); HEMATOCRIT 40.5 % (37.9-51.0); HEMOGLOBIN 13.3 g/dL (13.5-17.0); LYMPHOCYTES % (AUTO) 24.2 % (13-45); MEAN CORPUSCULAR HEMOGLOBIN 29.1 pg (27.0-33.4); MEAN CORPUSCULAR HGB CONC 32.9 g/dL (32.0-36.0); MEAN CORPUSCULAR VOLUME 88 fl (80-97); PLATELET COUNT 273 10^3/uL (150-450); RED BLOOD COUNT 4.59 10^6/uL (4.35-5.55); RED CELL DISTRIBUTION WIDTH 13.9 % (11.5-14.0); SEGMENTED NEUTROPHILS % (AUTO) 60.1 % (42-78); TOTAL CELLS COUNTED % (AUTO) 100 %; WHITE BLOOD COUNT 9.1 10^3/uL (4.0-10.5)
[2020-04-29 21:57] LABS: INTERNATIONAL RATION (INR) 1.14; PROTHROMBIN TIME 14.7 SEC (11.4-15.4)
[2020-04-29] MEDS: HEPARIN SODIUM,PORCINE/D5W 25,000 UNIT/250 ML RTUINJ IV PRN (22:24)
[2020-04-29] MEDS ORDERED: HEPARIN SODIUM,PORCINE/D5W 25,000 UNIT/250 ML RTUINJ IV PRN (22:30)
[2020-04-29] MEDS ORDERED: HEPARIN SOD (PORCINE) 1,000 UNIT/ML 10 ML VIAL IV PRN (22:54)
[2020-04-30 05:03] LABS: CREATINE KINASE MB 0.43 ng/mL (<4.55)
[2020-04-30 05:05] LABS: TROPONIN I < 0.012 ng/mL
[2020-04-30] MEDS: PANTOPRAZOLE SODIUM 40 MG TABLET.DR PO SCH (05:32)
[2020-04-30 10:19] LABS: CREATINE KINASE MB 0.49 ng/mL (<4.55)
[2020-04-30 10:22] LABS: TROPONIN I < 0.012 ng/mL
[2020-04-30] MEDS: HEPARIN SODIUM,PORCINE/D5W 25,000 UNIT/250 ML RTUINJ IV PRN (11:45)
[2020-04-30] MEDS ORDERED: OXYCODONE HCL IR 5 MG TABLET PO PRN (14:49)
[2020-04-30] MEDS ORDERED: IPRATROPIUM BROMIDE 0.06% NASAL SPRAY 15 ML NASL PRN (14:49)
--- NOTE | 2020-04-30 19:40 | PDOC H&P ---
History of Present Illness Admission Date/PCP: 04/29/20 18:26 ADOLFO ROBLERO MD Patient complains of: Chest pain, shortness of breath History of Present Illness: HIRA WELLS is a 74 year old male patient of Dr. Roblero who presented to the ED with complain of sudden onset shortness of breath and left sided chest pain while laying on his recliner chair. Patient reported that he had left knee replacement surgery on 04/20/[address] [facility] in [place]. He is currently on in home physical therapy program and he was instructed to call [phone] o come to the Ed if he should experience such presenting symptoms. Patient had right hip replacement several years ago and developed pulmonary embolism. He was on Eliquis therapy which was held due to his recent left TKA surgery for about 3 weeks and restarted at half his usual dosage. He denied any unusual knee swelling or abnormal bleeding. No palpitation or irregular heart beat. No dizziness, headache or focal weakness. He was advised hospitalization for further evaluation and management. His morbidities are listed below. Past Medical History Cardiac Medical History: Reports: Hyperlipidema, Hypertension - meds x 2 years Denies: Myocardial Infarction Pulmonary Medical History: Reports: Sleep Apnea - CPAP ordered, ill fitting, does NOT use Denies: Pneumonia Malignancy Medical History: Denies: Lung Cancer GI Medical History: Reports: Gastroesophageal Reflux Disease - prior to Yoni fundoplication 1999, Hiatal Hernia - prior to Yoni fundoplication 1999 Musculoskeltal Medical History: Reports: Arthritis Denies: Fibromyalgia Past Surgical History Past Surgical History: Reports: Cardiac Catheterization, Herniorrhaphy - RIGHT inguinal with mesh, Orthopedic Surgery, Tonsillectomy Denies: Appendectomy, Cholecystectomy, Colostomy, Coronary Artery Bypass Graft, Gastric Bypass Surgery Social History Lives with: Family Smoking Status: Former Smoker Electronic Cigarette use?: No Frequency of Alcohol Use: None Hx Recreational Drug Use: No Drugs: None Hx Prescription Drug Abuse: No - Advance Directive Resuscitation Status: Full Code Family History Family History: Reviewed & Not Pertinent Parental Family History Reviewed: Yes Children Family History Reviewed: Yes Sibling(s) Family History Reviewed.: Yes Medication/Allergy Home Medications: Amlodipine Besylate [Norvasc 2.5 mg Tablet] 2.5 mg PO DAILY 05/18/19 Montelukast Sodium [Singulair 10 mg Tablet] 10 mg PO QHS 05/18/19 Pantoprazole Sodium [Protonix [address] Tablet] 40 mg PO QAM 05/18/19 Pravastatin Sodium 40 mg PO DAILY 05/18/19 Apixaban [Eliquis 5 mg Tablet] 5 mg PO Q12 #60 tablet 05/21/19 Meloxicam [Mobic 15 mg Tablet] 15 mg PO DAILY 04/29/20 Oxycodone HCl [Roxicodone] 5 mg PO Q4HP PRN 04/29/20 Docusate Sodium [Colace 100 mg Capsule] 100 mg PO QHS 04/30/20 Ipratropium [place] [Atrovent 0.06% Nasal [place]] 2 spray NASL QID PRN 04/30/20 Omeprazole 20 mg PO DAILY 04/30/20 Allergies/Adverse Reactions: adhesive tape [Adhesive Tape] Allergy (Intermediate, Verified 05/18/19 12:16) Hives latex [Latex] Allergy (Intermediate, Verified 05/18/19 12:16) Hives Review of Systems Constitutional: ABSENT: chills, fever(s), headache(s), weight gain, weight loss Eyes: ABSENT: visual disturbances Ears: ABSENT: hearing changes Cardiovascular: PRESENT: chest pain. ABSENT: dyspnea on exertion, edema, orthropnea, palpitations Respiratory: PRESENT: dyspnea. ABSENT: cough, hemoptysis Gastrointestinal: ABSENT: abdominal pain, constipation, diarrhea, hematemesis, hematochezia, nausea, vomiting Genitourinary: ABSENT: dysuria, hematuria Musculoskeletal: ABSENT: joint swelling Integumentary: ABSENT: rash, wounds Neurological: ABSENT: abnormal gait, abnormal speech, confusion, dizziness, focal weakness, syncope Psychiatric: ABSENT: anxiety, depression, homidical ideation, suicidal ideation Endocrine: ABSENT: cold intolerance, heat intolerance, menstrual abnormalities, polydipsia, polyuria Hematologic/Lymphatic: ABSENT: easy bleeding, easy bruising, lymphadenopathy Physical Exam Vital Signs: Temp Pulse Resp BP Pulse Ox 97.8 F 15 141/80 H 96 04/29/20 14:36 04/29/20 19:01 04/29/20 19:01 04/29/20 19:01 Intake & Output 04/28/20 04/29/20 04/30/20 06:59 06:59 06:59 Weight 90.718 kg General appearance: PRESENT: no acute distress, obese Head exam: PRESENT: atraumatic, normocephalic Eye exam: PRESENT: conjunctiva pink, EOMI, PERRLA. ABSENT: scleral icterus Ear exam: PRESENT: normal external ear exam Mouth exam: PRESENT: moist, tongue midline Neck exam: PRESENT: full ROM. ABSENT: carotid bruit, JVD, lymphadenopathy, thyromegaly Respiratory exam: PRESENT: clear to auscultation ashlee Cardiovascular exam: PRESENT: RRR, +S1, +S2. ABSENT: diastolic murmur, rubs, systolic murmur Pulses: PRESENT: normal dorsalis pedis pul, +2 pedal pulses bilateral Vascular exam: PRESENT: normal capillary refill. ABSENT: pallor GI/Abdominal exam: PRESENT: normal bowel sounds, soft. ABSENT: distended, guarding, mass, organolmegaly, rebound, tenderness Rectal exam: PRESENT: deferred Extremities exam: PRESENT: other - dressing over left kne joint from recent TKA surgery. ABSENT: pedal edema Musculoskeletal exam: ABSENT: full ROM - Limited across left knee joint due to his recent TKA surgery Neurological exam: PRESENT: alert, awake, oriented to person, oriented to place, oriented to time, oriented to situation, CN II-XII grossly intact. ABSENT: motor sensory deficit Psychiatric exam: PRESENT: appropriate affect, normal mood. ABSENT: homicidal ideation, suicidal ideation Skin exam: PRESENT: dry, intact, warm. ABSENT: cyanosis, rash Results Laboratory Results: 04/29/20 14:50 04/29/20 14:50 04/29/20 04/29/20 04/29/20 14:50 14:50 16:41 WBC 8.9 RBC 4.54 Hgb 13.4 L Hct 39.2 MCV 86 MCH 29.6 MCHC 34.2 RDW 14.0 Plt Count 257 Seg Neutrophils % 64.8 Sodium 140.3 Potassium 4.1 Chloride 111 H Carbon Dioxide 22 Anion Gap 7 BUN 20 Creatinine 1.14 Est GFR ( Amer) > 60 Glucose 117 H Calcium 9.3 Total Bilirubin 0.7 AST 20 Alkaline Phosphatase 60 Total Protein 6.6 Albumin 3.7 Urine Color YELLOW Urine Appearance CLEAR Urine pH 6.0 Ur Specific [employer] [place] 1.011 Urine Protein NEGATIVE Urine Glucose (UA) NEGATIVE Urine Ketones NEGATIVE Urine Blood NEGATIVE Urine Nitrite NEGATIVE Ur Leukocyte Esterase NEGATIVE Urine WBC (Auto) 0 04/29/20 04/29/20 14:50 14:50 Creatine Kinase 39 L CK-MB (CK-2) 0.41 Troponin I < 0.012 Impressions: Chest/Abdomen CTA 04/29/20 00:00 IMPRESSION: 1. Study degraded by motion artifact. Small filling defect within the right lower lobe posterior basal segmental pulmonary artery, may represent residual/ chronic pulmonary embolus versus small acute pulmonary embolus. 2. Cardiomegaly. Coronary artery calcifications. 3. Mild emphysema. Mild bibasilar atelectasis. 4. Colonic diverticulosis. Minimal soft tissue stranding adjacent to a diverticulum at the ascending colon, may be secondary to motion artifact versus mild/early acute diverticulitis. Clinical correlation recommended. Chest X-Ray 04/29/20 14:44 IMPRESSION: NO ACUTE RADIOGRAPHIC FINDING IN THE CHEST. Assessment & Plan - Diagnosis (1) Chest pain at rest Is this a current diagnosis for this admission?: Yes Plan: See covering admitting attending physician orders for details about care plan. (2) Acute pulmonary embolism Qualifiers: Pulmonary embolism type: unspecified Acute cor pulmonale presence: unspecified Qualified Code(s): I26.99 - Other pulmonary embolism without acute cor pulmonale Is this a current diagnosis for this admission?: Yes Plan: See covering admitting attending physician orders for details about care plan. (3) Recent surgical procedure on lower extremity Is this a current diagnosis for this admission?: Yes Plan: See covering admitting attending physician orders for details about care plan. (4) Personal history of pulmonary embolism Is this a current diagnosis for this admission?: Yes Plan: See covering admitting attending physician orders for details about care plan. (5) HTN (hypertension) Qualifiers: Hypertension type: essential hypertension Qualified Code(s): I10 - Essential (primary) hypertension Is this a current diagnosis for this admission?: Yes Plan: See covering admitting attending physician orders for details about care plan. (6) HLD (hyperlipidemia) Qualifiers: Hyperlipidemia type: unspecified Qualified Code(s): E78.5 - Hyperlipidemia, unspecified Is this a current diagnosis for this admission?: Yes Plan: See covering admitting attending physician orders for details about care plan. (7) GERD (gastroesophageal reflux disease) Qualifiers: Esophagitis presence: esophagitis presence not specified Qualified Code(s): K21.9 - Gastro-esophageal reflux disease without esophagitis Is this a current diagnosis for this admission?: Yes Plan: See covering admitting attending physician orders for details about care plan. (8) ANSHU (obstructive sleep apnea) Is this a current diagnosis for this admission?: Yes Plan: See covering admitting attending physician orders for details about care plan. - Time Time Spent: 50 to 70 Minutes Medications reviewed and adjusted accordingly: Yes Anticipated discharge: Home Within: Other - Inpatient Certification Based on my medical assessment, after consideration of the patient's comorbidities, presenting symptoms, or acuity I expect that the services needed warrant INPATIENT care.: Yes I certify that my determination is in accordance with my understanding of Medicare's requirements for reasonable and necessary INPATIENT services [42 CFR 412.3e].: Yes Medical Necessity: Significant Comorbidiites Make Outpatient Treatment Too Risky, Need Close Monitoring Due to Risk of Patient Decompensation, Need For Continuous Telemetry Monitoring, Risk of Complication if Not Cared For in Hospital, Risk of Diagnosis Which Will Require Inpatient Eval/Care/Monitoring Post Hospital Care: D/C Patient Intake Representative Documentation - Plan Summary Plan Summary: See covering admitting attending physician orders for details about care plan.
--- NOTE | 2020-04-30 19:45 | PDOC PROGRESS REPORT ---
Subjective Progress Note for:: 04/30/20 Subjective:: Patient denied any chest pain or difficulty with breathing. No nausea, vomiting, or abdominal pain. Reason For Visit: CHEST PAIN AT REST, PULMONARY EMBOLISM Physical Exam Vital Signs: Temp Pulse Resp BP Pulse Ox 98.0 F 66 16 128/79 H 100 04/30/20 15:20 04/30/20 15:20 04/30/20 15:20 04/30/20 15:20 04/30/20 15:20 Intake & Output 04/29/20 04/30/20 05/01/20 06:59 06:59 06:59 Intake Total 145 1152 Balance 145 1152 Weight 91.2 kg General appearance: PRESENT: no acute distress, obese Head exam: PRESENT: atraumatic, normocephalic Eye exam: PRESENT: conjunctiva pink, EOMI, PERRLA. ABSENT: scleral icterus Mouth exam: PRESENT: moist Respiratory exam: PRESENT: clear to auscultation ashlee Cardiovascular exam: PRESENT: RRR, +S1, +S2. ABSENT: diastolic murmur, rubs, systolic murmur Vascular exam: ABSENT: pallor GI/Abdominal exam: PRESENT: normal bowel sounds, soft. ABSENT: distended, guarding, mass, organolmegaly, rebound, tenderness Extremities exam: ABSENT: pedal edema Neurological exam: PRESENT: alert, awake, oriented to person, oriented to place, oriented to time, oriented to situation, CN II-XII grossly intact. ABSENT: motor sensory deficit Skin exam: PRESENT: dry, warm, other - intact and satisfactory dressing on his left knee TKA surgical site. Results Laboratory Results: 04/29/20 21:40 04/29/20 14:50 04/29/20 21:40 WBC 9.1 RBC 4.59 Hgb 13.3 L Hct 40.5 MCV 88 MCH 29.1 MCHC 32.9 RDW 13.9 Plt Count 273 Seg Neutrophils % 60.1 04/29/20 04/29/20 04/29/20 14:50 14:50 20:35 Creatine Kinase 39 L 32 L CK-MB (CK-2) 0.41 Troponin I < 0.012 04/29/20 04/30/20 04/30/20 20:35 04:00 04:00 Creatine Kinase 27 L CK-MB (CK-2) 0.40 0.43 Troponin I < 0.012 < 0.012 04/30/20 04/30/20 09:10 09:10 Creatine Kinase 34 L CK-MB (CK-2) 0.49 Troponin I < 0.012 Impressions: Chest/Abdomen CTA 04/29/20 00:00 IMPRESSION: 1. Study degraded by motion artifact. Small filling defect within the right lower lobe posterior basal segmental pulmonary artery, may represent residual/ chronic pulmonary embolus versus small acute pulmonary embolus. 2. Cardiomegaly. Coronary artery calcifications. 3. Mild emphysema. Mild bibasilar atelectasis. 4. Colonic diverticulosis. Minimal soft tissue stranding adjacent to a diverticulum at the ascending colon, may be secondary to motion artifact versus mild/early acute diverticulitis. Clinical correlation recommended. Chest X-Ray 04/29/20 14:44 IMPRESSION: NO ACUTE RADIOGRAPHIC FINDING IN THE CHEST. Assessment & Plan - Diagnosis (1) Chest pain at rest Is this a current diagnosis for this admission?: Yes (2) Acute pulmonary embolism Qualifiers: Pulmonary embolism type: unspecified Acute cor pulmonale presence: unspecified Qualified Code(s): I26.99 - Other pulmonary embolism without acute cor pulmonale Is this a current diagnosis for this admission?: Yes (3) Recent surgical procedure on lower extremity Is this a current diagnosis for this admission?: Yes (4) Personal history of pulmonary embolism Is this a current diagnosis for this admission?: Yes (5) HTN (hypertension) Qualifiers: Hypertension type: essential hypertension Qualified Code(s): I10 - Essential (primary) hypertension Is this a current diagnosis for this admission?: Yes (6) HLD (hyperlipidemia) Qualifiers: Hyperlipidemia type: unspecified Qualified Code(s): E78.5 - Hyperlipidemia, unspecified Is this a current diagnosis for this admission?: Yes (7) GERD (gastroesophageal reflux disease) Qualifiers: Esophagitis presence: esophagitis presence not specified Qualified Code(s): K21.9 - Gastro-esophageal reflux disease without esophagitis Is this a current diagnosis for this admission?: Yes (8) ANSHU (obstructive sleep apnea) Is this a current diagnosis for this admission?: Yes - Time Time Spent with patient: 25-34 minutes Level of Care: IMCU Medications reviewed and adjusted accordingly: Yes Anticipated discharge: Home Within: Other - Inpatient Certification Based on my medical assessment, after consideration of the patient's comorbidities, presenting symptoms, or acuity I expect that the services needed warrant INPATIENT care.: Yes I certify that my determination is in accordance with my understanding of Medicare's requirements for reasonable and necessary INPATIENT services [42 CFR 412.3e].: Yes Medical Necessity: Significant Comorbidiites Make Outpatient Treatment Too Risky, Need Close Monitoring Due to Risk of Patient Decompensation, Risk of Complication if Not Cared For in Hospital, Risk of Diagnosis Which Will Require Inpatient Eval/Care/Monitoring Post Hospital Care: D/C Environmental Lead Documentation - Plan Summary Plan Summary: D/C IV Heparin drip at 22:00 hour and start on Eliquis therapy at 5 mg po q12. Possible discharge in next 24 hours.
[2020-04-30] MEDS: APIXABAN 5 MG TABLET PO SCH (21:34)
[2020-04-30] MEDS ORDERED: MONTELUKAST SODIUM 10 MG TABLET PO SCH (22:00)
[2020-04-30] MEDS ORDERED: DOCUSATE SODIUM 100 MG CAPSULE PO SCH (22:00)
[2020-04-30] MEDS ORDERED: ATORVASTATIN CALCIUM 10 MG TABLET PO SCH (22:00)
[2020-05-01] MEDS: PANTOPRAZOLE SODIUM 40 MG TABLET.DR PO SCH (05:21)
[2020-05-01 07:06] LABS: APPEARANCE,URINE CLEAR; BILIRUBIN,URINE NEGATIVE (NEGATIVE); COLOR,URINE YELLOW; GLUCOSE, URINE NEGATIVE (NEGATIVE); KETONES,URINE NEGATIVE (NEGATIVE); LEUKOCYTE ESTERASE,URINE NEGATIVE (NEGATIVE); NITRITE,URINE NEGATIVE (NEGATIVE); PROTEIN,URINE NEGATIVE (NEGATIVE); URINE SPECIFIC GRAVITY 1.011; UROBILINOGEN,URINE NEGATIVE mg/dL (<2.0)
[2020-05-01 09:10] VITALS: BP 127/75
[2020-05-01] MEDS ORDERED: AMLODIPINE BESYLATE 2.5 MG TABLET PO SCH (10:00)
[2020-05-01] MEDS ORDERED: (PENDING PHARMACY ID) (Pravastatin Sodium [Pravastatin Sodium] 40 MG) PO SCH (10:00)
[2020-05-01] MEDS: APIXABAN 5 MG TABLET PO SCH (10:01)
--- NOTE | 2020-05-01 10:57 | PDOC DISCHARGE SUMMARY ---
Impression - Admit/DC Date/PCP Admission Date/Primary Care Provider: 04/29/20 18:26 ADOLFO ROBLERO MD Discharge Date: 05/01/20 - Discharge Diagnosis (1) Chest pain at rest Is this a current diagnosis for this admission?: Yes (2) Acute pulmonary embolism Is this a current diagnosis for this admission?: Yes (3) Recent surgical procedure on lower extremity Is this a current diagnosis for this admission?: Yes (4) Personal history of pulmonary embolism Is this a current diagnosis for this admission?: Yes (5) HTN (hypertension) Is this a current diagnosis for this admission?: Yes (6) HLD (hyperlipidemia) Is this a current diagnosis for this admission?: Yes (7) GERD (gastroesophageal reflux disease) Is this a current diagnosis for this admission?: Yes (8) ANSHU (obstructive sleep apnea) Is this a current diagnosis for this admission?: Yes - Assessment Summary: Patient was admitted for sudden onset chest pain and difficulty with breathing with concern for pulmonary embolism as well as acute coronary syndrome due to his morbidities and recent left knee total arthroplasty surgery. His evaluation with serial cardiac enzyme was normal. He was managed with IV Heparin high dose to achieve fast and adequate anticoagulation. He was later transition to Eliquis therapy. He will be discharged home today on Eliquis 5 mg p.o q12 hours. He will follow up with his orthopedic surgeon an physical therapy teams as earlier schedule. He was instructed to follow up with Dr. Roblero, his PCP, on 05/09/2020. - Additional Information Resuscitation Status: Full Code Discharge Diet: As Tolerated, Cardiac Discharge Activity: Activity As Tolerated, Supervised Activity Referrals: ADOLFO ROBLERO MD [Primary Care Provider] - 05/09/20 10:00 am (call office to confirm appointment) Prescriptions: Docusate Sodium [Colace 100 mg Capsule] 2 cap PO QHS #60 Apixaban [Eliquis 5 mg Tablet] 5 mg PO Q12 #60 tablet Home Medications: Amlodipine Besylate [Norvasc 2.5 mg Tablet] 2.5 mg PO DAILY 05/18/19 Montelukast Sodium [Singulair 10 mg Tablet] 10 mg PO QHS 05/18/19 Pantoprazole Sodium [Protonix [address] Tablet] 40 mg PO QAM 05/18/19 Pravastatin Sodium 40 mg PO DAILY 05/18/19 Oxycodone HCl [Roxicodone] 5 mg PO Q4HP PRN 04/29/20 Ipratropium [place] [Atrovent 0.06% Nasal [place]] 2 spray NASL QID PRN 04/30/20 Apixaban [Eliquis 5 mg Tablet] 5 mg PO Q12 #60 tablet 05/01/20 Docusate Sodium [Colace 100 mg Capsule] 2 cap PO QHS #60 05/01/20 History of Present Illiness History of Present Illness: HIRA WELLS is a 74 year old male patient of Dr. Roblero who presented to the ED with complain of sudden onset shortness of breath and left sided chest pain while laying on his recliner chair. Patient reported that he had left knee replacement surgery on 04/20/[address] [facility] in [place]. He is currently on in home physical therapy program and he was instructed to call [phone] o come to the Ed if he should experience such presenting symptoms. Patient had right hip replacement several years ago and developed pulmonary embolism. He was on Eliquis therapy which was held due to his recent left total knee arthroplasty surgery for about 3 weeks and restarted at half his usual dosage. He denied any unusual knee swelling or abnormal bleeding. No palpitation or irregular heart beat. No dizziness, headache or focal weakness. He was advised hospitalization for further evaluation and management. His morbidities are listed below. Hospital Course Hospital Course: Patient was admitted for sudden onset chest pain and difficulty with breathing with concern for pulmonary embolism as well as acute coronary syndrome due to his morbidities and recent left knee total arthroplasty surgery. His evaluation with serial cardiac enzyme was normal. He was managed with IV Heparin high dose to achieve fast and adequate anticoagulation. He was later transition to Eliquis therapy. He will be discharged home today on Eliquis 5 mg p.o q12 hours. He will follow up with his orthopedic surgeon an physical therapy teams as earlier schedule. He was instructed to follow up with Dr. Roblero, his PCP, on 05/09/2020. Physical Exam Vital Signs: Temp Pulse Resp BP Pulse Ox 97.6 F 60 18 127/75 H 97 05/01/20 07:57 05/01/20 07:57 05/01/20 07:57 05/01/20 07:57 05/01/20 07:57 Intake & Output 04/30/20 05/01/20 05/02/20 06:59 06:59 06:59 Intake Total 145 1669 Balance 145 1669 Weight 91.2 kg 91.2 kg General appearance: PRESENT: no acute distress, obese Head exam: PRESENT: atraumatic, normocephalic Eye exam: PRESENT: conjunctiva pink, EOMI, PERRLA. ABSENT: pallor, scleral icterus Mouth exam: PRESENT: moist Respiratory exam: PRESENT: clear to auscultation ashlee Cardiovascular exam: PRESENT: RRR, +S1, +S2. ABSENT: diastolic murmur, rubs, systolic murmur GI/Abdominal exam: PRESENT: normal bowel sounds, soft. ABSENT: distended, guarding, mass, organomegaly, rebound, tenderness Extremities exam: ABSENT: pedal edema Neurological exam: PRESENT: alert, awake, oriented to person, oriented to place, oriented to time, oriented to situation, CN II-XII grossly intact. ABSENT: motor sensory deficit Skin exam: PRESENT: dry, warm, other - intact and satisfactory dressing on his left knee TKA surgical site. Results Laboratory Results: WBC 9.1 10^3/uL (4.0-10.5) 04/29/20 21:40 RBC 4.59 10^6/uL (4.35-5.55) 04/29/20 21:40 Hgb 13.3 g/dL (13.5-17.0) L 04/29/20 21:40 Hct 40.5 % (37.9-51.0) 04/29/20 21:40 MCV 88 fl (80-97) 04/29/20 21:40 MCH 29.1 pg (27.0-33.4) 04/29/20 21:40 MCHC 32.9 g/dL (32.0-36.0) 04/29/20 21:40 RDW 13.9 % (11.5-14.0) 04/29/20 21:40 Plt Count 273 10^3/uL (150-450) 04/29/20 21:40 Lymph % (Auto) 24.2 % (13-45) 04/29/20 21:40 [place] % (Auto) 7.0 % (3-13) 04/29/20 21:40 Eos % (Auto) 7.9 % (0-6) H 04/29/20 21:40 Baso % (Auto) 0.8 % (0-2) 04/29/20 21:40 Absolute Neuts (auto) 5.4 10^3/uL (1.7-8.2) 04/29/20 21:40 Absolute Lymphs (auto) 2.2 10^3/uL (0.5-4.7) 04/29/20 21:40 Absolute Monos (auto) 0.6 10^3/uL (0.1-1.4) 04/29/20 21:40 Absolute Eos (auto) 0.7 10^3/uL (0.0-0.6) H 04/29/20 21:40 Absolute Basos (auto) 0.1 10^3/uL (0.0-0.2) 04/29/20 21:40 Seg Neutrophils % 60.1 % (42-78) 04/29/20 21:40 PT 14.7 SEC (11.4-15.4) 04/29/20 21:40 INR 1.14 04/29/20 21:40 APTT 102.5 SEC (23.5-35.8) H 04/30/20 19:55 D-Dimer 1.53 ug/mL (0.00-0.50) H 04/29/20 14:50 Sodium 140.3 mmol/L (137-145) 04/29/20 14:50 Potassium 4.1 mmol/L (3.6-5.0) 04/29/20 14:50 Chloride 111 mmol/L (98-107) H 04/29/20 14:50 Carbon Dioxide 22 mmol/L (22-30) 04/29/20 14:50 Anion Gap 7 (5-19) 04/29/20 14:50 BUN 20 mg/dL (7-20) 04/29/20 14:50 Creatinine 1.14 mg/dL (0.52-1.25) 04/29/20 14:50 Est GFR ( Amer) > 60 (>60) 04/29/20 14:50 Est GFR (MDRD) Non-Af > 60 (>60) 04/29/20 14:50 Glucose 117 mg/dL (75-110) H 04/29/20 14:50 Calcium 9.3 mg/dL (8.4-10.2) 04/29/20 14:50 Total Bilirubin 0.7 mg/dL (0.2-1.3) 04/29/20 14:50 Direct Bilirubin 0.0 mg/dL (0.0-0.4) 04/29/20 14:50 Neonat Total Bilirubin Not Reportable 04/29/20 14:50 Neonat Direct Bilirubin Not Reportable 04/29/20 14:50 Neonat Indirect Bili Not Reportable 04/29/20 14:50 AST 20 U/L (17-59) 04/29/20 14:50 ALT 21 U/L (<50) 04/29/20 14:50 Alkaline Phosphatase 60 U/L (38-126) 04/29/20 14:50 Creatine Kinase 34 U/L (55-170) L 04/30/20 09:10 CK-MB (CK-2) 0.49 ng/mL (<4.55) 04/30/20 09:10 Troponin I < 0.012 ng/mL 04/30/20 09:10 Total Protein 6.6 g/dL (6.3-8.2) 04/29/20 14:50 Albumin 3.7 g/dL (3.5-5.0) 04/29/20 14:50 Urine Color YELLOW 05/01/20 05:29 Urine Appearance CLEAR 05/01/20 05:29 Urine pH 6.0 (5.0-9.0) 05/01/20 05:29 Ur Specific [place] 1.011 05/01/20 05:29 Urine Protein NEGATIVE mg/dL (NEGATIVE) 05/01/20 05:29 Urine Glucose (UA) NEGATIVE mg/dL (NEGATIVE) 05/01/20 05:29 Urine Ketones NEGATIVE mg/dL (NEGATIVE) 05/01/20 05:29 Urine Blood NEGATIVE (NEGATIVE) 05/01/20 05:29 Urine Nitrite NEGATIVE (NEGATIVE) 05/01/20 05:29 Urine Bilirubin NEGATIVE (NEGATIVE) 05/01/20 05:29 Urine Urobilinogen NEGATIVE mg/dL (<2.0) 05/01/20 05:29 Ur Leukocyte Esterase NEGATIVE (NEGATIVE) 05/01/20 05:29 Urine WBC (Auto) 1 /HPF 05/01/20 05:29 Urine RBC (Auto) 1 /HPF 05/01/20 05:29 Urine Mucus (Auto) RARE /LPF 05/01/20 05:29 Urine Ascorbic Acid NEGATIVE (NEGATIVE) 05/01/20 05:29 04/29/20 04/29/20 04/30/20 14:50 20:35 04:00 CK-MB (CK-2) 0.41 0.40 0.43 Troponin I < 0.012 < 0.012 < 0.012 04/30/20 09:10 CK-MB (CK-2) 0.49 Troponin I < 0.012 Impressions: Chest/Abdomen CTA 04/29/20 00:00 IMPRESSION: 1. Study degraded by motion artifact. Small filling defect within the right lower lobe posterior basal segmental pulmonary artery, may represent residual/ chronic pulmonary embolus versus small acute pulmonary embolus. 2. Cardiomegaly. Coronary artery calcifications. 3. Mild emphysema. Mild bibasilar atelectasis. 4. Colonic diverticulosis. Minimal soft tissue stranding adjacent to a diverticulum at the ascending colon, may be secondary to motion artifact versus mild/early acute diverticulitis. Clinical correlation recommended. Chest X-Ray 04/29/20 14:44 IMPRESSION: NO ACUTE RADIOGRAPHIC FINDING IN THE CHEST. Plan Health Concerns: Compliance with Eliquis therapy and outpatient physical therapy. Plan of Treatment: Maintain on Eliquis 5 mg p.o q12 hours. Encourage mobility and participation in physical therapy program. Goals: Reduce readmission risk for pulmonary embolism Stroke Is this a Stroke Patient?: No Acute Heart Failure - Is this a Heart Failure Patient?: No
== END 2020-05-01 11:52 | disposition home or self-care (01) | DRG 176 ==
LOC: ER 14:36 → EH 18:26 → 3S 20:06
PROVIDERS: ADMIT Internal Medicine Geriatric Medicine; ATTEND Internal Medicine Geriatric Medicine
DX: I26.99 Other pulmonary embolism without acute cor pulmonale (principal); I10 Essential (primary) hypertension; E78.5 Hyperlipidemia, unspecified; K21.9 Gastro-esophageal reflux disease without esophagitis; G47.33 Obstructive sleep apnea (adult) (pediatric); Z87.891 Personal history of nicotine dependence; Z91.040 Latex allergy status; Z86.711 Personal history of pulmonary embolism; Z96.653 Presence of artificial knee joint, bilateral; Z79.01 Long term (current) use of anticoagulants
CPT/HCPCS: 36415; 71045; 71275; 80053; 81001; 82550; 82553; 84484; 85025; 85379; 85610; 85730; 93005; 93010; 96374; 99291; 99292; J1644; J2270; J3490